=== PATIENT | female | born 1945 | race Caucasian/White ===

== ENCOUNTER 2022-03-14 21:06 | Emergency (ER) | payer MEDICARE ==
--- OUTSIDE RECORDS SUMMARY | 2022-03-14 21:11 | XMS REPORT | Continuity of Care Document ---
:1945 Author Organization [facility] t Address [address] [place] [address] Care Team Providers Name Role Phone Claire MILLER Primary Care Physician ANGELLA Attending Clinician Unavailable EWA Attending Clinician Unavailable Celestina MENJIVAR Attending Clinician Unavailable Jovanni LUND Attending Clinician Unavailable JEROMY Attending Clinician Unavailable Maico Whitaker MD Attending Clinician Timmy Bailey MD Attending Clinician Mariajose Delcid MD Attending Clinician Corby MILLER Attending Clinician CORBY Attending Clinician Unavailable aMrtin May MD Attending Clinician WILLIAM Attending Clinician Unavailable ANGELLA Attending Clinician Unavailable Natalio Brady MD Attending Clinician Stanley Mahoney APRN Attending Clinician Ayse Heath MD Attending Clinician Kristian Gordon MD Attending Clinician CO19 Attending Clinician Unavailable COPolly Attending Clinician Unavailable CLAIRE Attending Clinician Unavailable WILLIAM Attending Clinician Unavailable ANURADHA Attending Clinician Unavailable YAMILET Attending Clinician Unavailable SENA Attending Clinician Unavailable MEME Attending Clinician Unavailable Angella Attending Clinician Unavailable Jovanni LUND Admitting Clinician Unavailable LEAH Admitting Clinician Unavailable EDGAR Admitting Clinician Unavailable Payers Payer Name Policy Type Policy Number Effective Date Expiration Date Renny mayers MEDICARE PART A [id number] 2012 AND B 00:00:00 0500 [id number] 2012 00:00:00 0100 [id number] 2021 00:00:00 Problems Condition Condition Condition Status Onset Resolution Last Treating Co mments Source Name Details Category Date Date Treatment Clinician Date Ganglion Ganglion Disease Active UT of left of left 12-25 Health shoulder shoulder 00:00: 00 Shoulder Shoulder Disease Active UT pain pain 07-31 Health 00:00: 00 Other Other Disease Active UT idiopathic idiopathic 07-31 He alth scoliosis, scoliosis, 00:00: lumbar lumbar 00 region region Acute Acute Disease Active UT kidney kidney 07-31 Health failure, failure, 00:00: unspecifie unspecifie 00 d d Obstructiv Obstructiv Disease Active U T e sleep e sleep 07-31 Health apnea apnea 00:00: syndrome syndrome 00 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 07-31 Health resighini resighini 00:00: coronary coronary 00 artery of artery of resighini resighini heart with heart with unstable unstable angina angina pectoris pectoris Chronic Chronic Disease Active UT kidney kidney 07-31 Health disease, disease, 00:00: unspecifie unspecifie 00 d d Chronic Chronic Disease Active UT right right 07-31 Health shoulder shoulder 00:00: pain pain 00 Degenerati Degenerati Disease Active U T on of on of 07-31 Health cervical cervical 00:00: interverte interverte 00 bral disc bral disc Tendinitis Tendinitis Disease Active U T of both of both 07-31 Health 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 Formattin g of this note might be different from the original. Added automatic ally from request for surgery [id number] rmatting of this note might be different from the original. Added automatic ally from request for surgery [id number] Trochanter Trochanter Disease Active U T ic ic 4 Health bursitis bursitis 00:00: of left of left 00 hip hip Piriformis Piriformis Disease Active U T syndrome syndrome 4 Health of left of left 00:00: side side 00 Lumbar Lumbar Disease Active 2019-11 [facility] spondylosi spondylosi 1-23 st s s 00:00: Hospita 00 l Contact Contact Disease Active UT with and with and 05-09 Health (suspected (suspected 00:00: ) exposure ) exposure 00 to other to other viral viral communicab communicab le le diseases diseases Primary Primary Disease Active UT osteoarthr osteoarthr 4-17 He alth itis itis 00:00: involving involving 00 multiple multiple joints joints Myalgia Myalgia Disease Active 2018-11 UT 0- Health 00:00: 00 Multiple Multiple Disease Active UT joint pain joint pain 8-26 He alth 00:00: 00 Abnormal Abnormal Disease Active UT thyroid thyroid 7 Health blood test blood test 00:00: 00 Aortic Aortic Disease Active UT dilatation dilatation 4 He alth 00:00: 00 Allergic Allergic Disease Active UT rhinitis rhinitis 3-29 Health 00:00: 00 Status Status Disease Active [facility] post post 9-20 st lumbar lumbar 00:00: Hospita spinal spinal 00 l fusion fusion Preoperati Preoperati Disease Active U T ve ve 9 Health clearance clearance 00:00: 00 Chronic Chronic Disease Active [facility] left left 8-31 st lumbar lumbar 00:00: Hospita radiculopa radiculopa 00 l thy thy Lumbar Lumbar Disease Active [facility] stenosis stenosis 8-31 st 00:00: Hospita 00 l Lumbago Lumbago Disease Active UT 7-11 Health 00:00: 00 Abnormal Abnormal Disease Active UT findings findings 2-05 Health on on 00:00: diagnostic diagnostic 00 imaging of imaging of other other specified specified body body structures structures Vitamin B Vitamin B Disease Active UT deficiency deficiency 9-15 He alth 00:00: 00 Diabetes Diabetes Disease Active UT mellitus mellitus 5-11 Health 00:00: 00 Symptomati Symptomati Disease Active U T c c 510 Health menopausal menopausal 00:00: or female or female 00 climacteri climacteri c states c states Streptococ Streptococ Disease Active U T darline darline 510 Health pharyngiti pharyngiti 00:00: s s 00 Other Other Disease Active UT hyperlipid hyperlipid 5-10 He alth emia emia 00:00: 00 Abnormal Abnormal Disease Active [place] blood blood 10 Health level of level of 00:00: mineral mineral 00 Abnormal Abnormal Disease Active UT sputum sputum 10 Health 00:00: 00 Anemia Anemia Disease Active [place] 510 Health 00:00: 00 Anxiety Anxiety Disease Active UT 5-10 Health 00:00: 00 Cervical Cervical Disease Active UT radiculopa radiculopa 5-10 He alth thy thy 00:00: 00 Chronic Chronic Disease Active [place] mixed mixed 03-10 Health headache headache 00:00: syndrome syndrome 00 Chronic Chronic Disease Active UT obstructiv obstructiv 5-10 He alth e e 00:00: pulmonary pulmonary 00 disease disease 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 5-10 Health 00:00: 00 Essential Essential Disease Active UT (primary) (primary) 5-10 Heal th hypertensi hypertensi 00:00: on on 00 Fatigue Fatigue Disease Active UT 5-10 Health 00:00: 00 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 510 Health 00:00: 00 Insomnia Insomnia Disease Active UT 5-10 Health 00:00: 00 Bladder Bladder Disease Active 2012-11 [place] tumor tumor 1-27 Health 00:00: 00 Ganglion Ganglion Disease Active UT 7-15 Health 00:00: 00 History of History of Problem Resolve UT Benign Benign d Physici Polyps Of Polyps Of ans The Large The Large Intestine Intestine History of History of Problem Resolve UT Coronary Coronary d Physic i Artery Artery ans Disease Disease Ganglion Ganglion Problem Active UT Of Left Of Left Physici Shoulder Shoulder ans Bladder Bladder Problem Active UT Sphincter Sphincter Phys ici Spasm Spasm ans Chronic Chronic Problem Active UT obstructiv obstructiv Ph ysici e e ans pulmonary pulmonary disease disease History of History of Problem Resolve UT essential essential d Phys ici hypertensi hypertensi an s on on History of History of Problem Resolve UT Obstructiv Obstructiv d Ph ysici e sleep e sleep ans apnea apnea History of History of Problem Resolve UT rheumatoid rheumatoid d Ph ysici arthritis arthritis ans Other Other Problem Active UT hyperlipid hyperlipid Ph ysici emia emia ans Abnormal Abnormal Problem Active UT blood blood Physici level of level of ans mineral mineral Localized Localized Problem Active UT swelling, swelling, Phys ici mass or mass or ans lump of lump of neck neck Cough Cough Problem Active UT Physici ans Chronic Chronic Problem Active UT diarrhea diarrhea Physic i of unknown of unknown an s origin origin Hematuria Hematuria Problem Active UT Physici ans Insomnia Insomnia Problem Active UT Physici ans Anxiety Anxiety Problem Active UT Physici ans Anemia Anemia Problem Active UT Physici ans Urinary Urinary Problem Active UT tract tract Physici infection infection ans Essential Essential Problem Active UT (primary) (primary) Phys ici hypertensi hypertensi an s on on Hypercalce Hypercalce Problem Active U T malika malika Physici ans 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 Physici disease disease ans Intercosta Intercosta Problem Active U T l pain l pain Physici ans Depressive Depressive Problem Active U T disorder disorder Physic i ans Bladder Bladder Problem Active UT cancer cancer Physici ans Chronic Chronic Problem Active UT mixed mixed Physici headache headache ans syndrome syndrome Apnea, Apnea, Problem Active UT sleep sleep Physici ans Bladder Bladder Problem Active UT polyps polyps Physici ans Abnormal Abnormal Problem Active UT sputum sputum Physici ans Cervical Cervical Problem Active UT radiculopa radiculopa Ph ysici thy thy ans Neck Neck Problem Active UT strain strain Physici ans Lung mass Lung mass Problem Active UT Physici ans Symptomati Symptomati Problem Active U T c c Physici menopausal menopausal an s or female or female climacteri climacteri c states c states Allergic Allergic Problem Active UT reaction, reaction, Phys ici initial initial ans encounter encounter Fatigue Fatigue Problem Active UT Physici ans Streptococ Streptococ Problem Active U T darline darline Physici pharyngiti pharyngiti an s s s Sore Sore Problem Active UT throat throat Physici ans Diabetes Diabetes Problem Active UT mellitus mellitus Physic i ans Vitamin Vitamin Problem Active UT B12 B12 Physici deficiency deficiency an s Vitamin B Vitamin B Problem Active UT deficiency deficiency Ph ysici ans Flu-like Flu-like Problem Active UT symptoms symptoms Physic i ans Abnormal Abnormal Problem Active UT liver liver Physici enzymes enzymes ans Abnormal Abnormal Problem Active UT finding on finding on Ph ysici imaging imaging ans Shortness Shortness Problem Active UT of breath of breath Phys ici ans Chest pain Chest pain Problem Active U T Physici ans Vitamin D Vitamin D Problem Active UT insufficie insufficie Ph ysici ncy ncy ans Lumbago Lumbago Problem Active UT Physici ans Preoperati Preoperati Problem Active U T ve ve Physici clearance clearance ans Allergic Allergic Problem Active UT rhinitis rhinitis Physic i ans Aortic Aortic Problem Active UT dilatation dilatation Ph ysici ans Creatinine Creatinine Problem Active U T elevation elevation Phys ici ans Breast Breast Problem Active UT cancer cancer Physici screening screening ans Colon Colon Problem Active UT cancer cancer Physici screening screening ans HLD HLD Problem Active UT (hyperlipi (hyperlipi Ph ysici demia) demia) ans Breast Breast Problem Active UT cancer cancer Physici screening screening ans by by mammogram mammogram Multiple Multiple Problem Active UT joint pain joint pain Ph ysici ans Myalgia Myalgia Problem Active UT Physici ans Primary Primary Problem Active UT osteoarthr osteoarthr Ph ysici itis itis ans involving involving multiple multiple joints joints Exposure Exposure Problem Active UT to to Physici COVID-19 COVID-19 ans virus virus Encounter Encounter Problem Active UT for for Physici administra administra an s tion of tion of COVID-19 COVID-19 vaccine vaccine Allergies, Adverse Reactions, Alerts Allergy Allergy Status Severity Reaction(s) Onset Inactive Treating Comm ents Source Name Type Date Date Clinician Meloxica Allergy Active Unknown 2019-11 "messed UT m to 11-23 with my Health substanc 00:00: kidneys" e 00 "messed with my kidneys"" messed with my kidneys" Meloxica Propensi Active Other (See 2019-11 "messed M ethodi m ty to Comments) 11-[address] adverse 00:00: kidneys" Hospita reaction 00 l s to drug Nsaids Allergy Active made my UT to 06-11 "kidneys Health substanc 00:00: and liver e 00 shut down" Nsaids Propensi Active [facility]i (Non-Cade ty to 06-11 st roidal adverse 00:00: Hospita Anti-Inf reaction 00 l lammator s to y Drug) drug Penicill Propensi Active Method i ins ty to 04-21 st adverse 00:00: Hospita reaction 00 l s to drug Sulfa Propensi Active [facility]i (Sulfona ty to 04-21 st mide adverse 00:00: Hospita Antibiot reaction 00 l ics) s to drug Sulfa Allergy Active made my UT Antibiot to 04-21 "kidneys Health ics substanc 00:00: and liver e 00 shut down" Penicill Allergy Active Patient UT ins to 04-21 has never Health substanc 00:00: actually e 00 had PCN. She was told to avoid this medicatio n as her mother had an allergic reaction to PCN and almost . Patient stated she has received Keflex and did not experienc e any reactions . Patient has never actually had PCN. She was told to avoid this medicatio n as her mother had an allergic reaction to PCN and almost . Patient stated she has received Keflex and did not experienc e any reactions . Penicill Allergy Active UT ins to drug Physici (finding ans ) Sulfa Allergy Active UT Drugs to drug Physici (finding ans ) Family History Family Member Diagnosis Comments Start Date Stop Date Source Natural brother Heart disease [facility] father Cancer [facility] Maternal Rheum arthritis Yazdanism grandmother [facility] mother Cancer [facility] mother Diabetes [facility] mother Heart disease [facility] mother Rheum arthritis [facility] sister Heart disease [facility] sister Rheum arthritis [facility] Unknown Family Family history Family History [place] Physicians Member of Ulcerative Colitis Social History Social Habit Start Date Stop Date Quantity Comments Source Exposure to Not sure [place] [facility] SARS-CoV-2 (event) Alcohol intake 2022-01-07 2022-01-07 .43 /d [place] [facility] 00:00:00 00:00:00 Cigarettes smoked 2021-08-06 2021-08-06 [facility] Heal th current (pack per 00:00:00 00:00:00 day) - Reported Cigarette pack-years 2021-08-06 2021-08-06 [facility] H ealth 00:00:00 00:00:00 Tobacco use and 2021-08-06 2021-08-06 Smokeless tobacco [place] [facility] exposure 00:00:00 00:00:00 non-user History of tobacco 1998-08-28 Cigarette Smoker [place] [facility] use 00:00:00 Sex Ass[birth year] At [birth year] F [place] [facility] 00:00:00 00:00:00 Smoking Status Start Date Stop Date Source Ex-smoker 2021-08-06 00:00:00 2021-08-06 00:00:00 [place] [facility] Medications Ordered Filled Start Stop Current Ordering Indication Dosage Frequency Signature Comments Components Source Medication Medication Date Date Medication? Clinician (SIG) Name Name acetaminoph 2021-0 Yes 650mg Q.5D Take 650 U T en (Tylenol 3-09 mg by Health 8 Hour) 650 10:21: mouth 2 MG ER 50 (two) tablet times a day if needed. aspirin 81 2-0 Yes 81mg QD Take 81 mg U T MG EC 3-09 by mouth 1 Health tablet 10:21: (one) time 50 each day. cycloSPORIN 2-0 Yes 1[drp] QD 1 drop 1 UT E 3-09 (one) time Health (Restasis) 10:21: each day. 0.05 % 50 ophthalmic emulsion acetaminoph 2021-0 Yes 650mg Q.5D Take 650 U T en (Tylenol 3-09 mg by Health 8 Hour) 650 10:21: mouth 2 MG ER 50 (two) tablet times a day if needed. aspirin 81 2-0 Yes 81mg QD Take 81 mg U T MG EC 3-09 by mouth 1 Health tablet 10:21: (one) time 50 each day. cycloSPORIN 2-0 Yes 1[drp] QD 1 drop 1 UT E 3-09 (one) time Health (Restasis) 10:21: each day. 0.05 % 50 ophthalmic emulsion acetaminoph 2-0 Yes 650mg Q.5D Take 650 U T en (Tylenol 2-24 mg by Health 8 Hour) 650 14:00: mouth 2 MG ER 33 (two) tablet times a day if needed. aspirin 81 2-0 Yes 81mg QD Take 81 mg U T MG EC 2-24 by mouth 1 Health tablet 14:00: (one) time 33 each day. cycloSPORIN 2022-0 Yes 1[drp] QD 1 drop 1 UT E 2-24 (one) time Health (Restasis) 14:00: each day. 0.05 % 33 ophthalmic emulsion cyclobenzap Yes TAKE 1 UT rine 1-05 TABLET (5 Health (Flexeril) 00:00: MG TOTAL) 5 MG tablet 00 BY MOUTH 2 (TWO) TIMES A DAY FOR 30 DAYS. cyclobenzap Yes TAKE 1 UT rine 1-05 TABLET (5 Health (Flexeril) 00:00: MG TOTAL) 5 MG tablet 00 BY MOUTH 2 (TWO) TIMES A DAY FOR 30 DAYS. cyclobenzap Yes TAKE 1 UT rine 1-05 TABLET (5 Health (Flexeril) 00:00: MG TOTAL) 5 MG tablet 00 BY MOUTH 2 (TWO) TIMES A DAY FOR 30 DAYS. traMADol 2020-11 Yes TAKE ONE UT (Ultram) 50 2-29 (1) Health MG tablet 00:00: TABLET(S) 00 BY MOUTH TWICE A DAY NEEDED FOR SEVEN DAYS. traMADol 2020-11 Yes TAKE ONE UT (Ultram) 50 2-29 (1) Health MG tablet 00:00: TABLET(S) 00 BY MOUTH TWICE A DAY NEEDED FOR SEVEN DAYS. traMADol 2020-11 Yes TAKE ONE UT (Ultram) 50 2-29 (1) Health MG tablet 00:00: TABLET(S) 00 BY MOUTH TWICE A DAY NEEDED FOR SEVEN DAYS. DULoxetine 2020-11 Yes [id number] TAKE ONE UT (Cymbalta) 2-21 (1) Health [address] 00:00: CAPSULE BY capsule 00 MOUTH DAILY. DULoxetine 2020-11 Yes [id number] TAKE ONE UT (Cymbalta) 2-21 (1) Health [address] 00:00: CAPSULE BY capsule 00 MOUTH DAILY. DULoxetine 2020-11 Yes [id number] TAKE ONE UT (Cymbalta) 2-21 (1) Health [address] 00:00: CAPSULE BY capsule 00 MOUTH DAILY. clopidogrel 0 Yes 75mg QD Take 75 mg UT (Plavix) 75 9-15 by mouth 1 He alth MG tablet 00:00: (one) time 00 each day. clopidogrel 2020-0 Yes 75mg QD Take 75 mg UT (Plavix) 75 9-15 by mouth 1 He alth MG tablet 00:00: (one) time 00 each day. clopidogrel 2020-0 Yes 75mg QD Take 75 mg UT (Plavix) 75 9-15 by mouth 1 He alth MG tablet 00:00: (one) time 00 each day. metoprolol Yes 50mg QD Take 50 mg U T succinate 7-27 by mouth 1 Heal th XL 00:00: (one) time (Toprol-XL) 00 each day. 50 MG 24 hr tablet metoprolol 0 Yes 50mg QD Take 50 mg U T succinate 7-27 by mouth 1 Heal th XL 00:00: (one) time (Toprol-XL) 00 each day. 50 MG 24 hr tablet metoprolol Yes 50mg QD Take 50 mg U T succinate 7-27 by mouth 1 Heal th XL 00:00: (one) time (Toprol-XL) 00 each day. 50 MG 24 hr tablet clopidogreL No 75mg QD Take 1 Met hodi (PLAVIX) 75 5-20 06-20 tablet (75 s t mg tablet 00:00: 04:59 mg total) Ho spita 00 :00 by mouth l daily for 30 days. cholecalcif Yes 1{tbl} QD Take 1 Me thodi grayson, 5-[address] vitamin D3, 15:59: mouth Hospi ta (VITAMIN D3 20 daily. l ORAL) cyanocobala Yes 1{tbl} QD Take 1 Me thodi min, 5-[address] vitamin 15:59: mouth Hospita B-12, 20 daily. l (VITAMIN B-12 ORAL) cycloSPORIN Yes 1[drp] QD Administer [facility]i E 5-[address] (RESTASIS) 15:59: both eyes Ho spita 0.05 % 20 daily. l ophthalmic emulsion aspirin Yes 81mg QD Take 81 mg Meth kasey (ECOTRIN) 5-[address] 81 MG 15:59: daily. Hospita enteric 20 l coated tablet psyllium Yes 1{scoop QD Take 1 Meth kasey husk 5-19 } Scoop by st (METAMUCIL 15:59: mouth Hospit a ORAL) 20 every l morning. acetaminoph Yes 650mg Q.5D Take 650 M ethodi en ER 5-[address] (Tylenol 15:59: mouth 2 Hospit a Arthritis 20 (two) l Pain) 650 times a MG 8 hr day as tablet needed for mild pain. metoprolol No 50mg QD Take 50 mg [facility]i succinate 03-[address] XL 15:59: 00:00 nightly. Hospita (TOPROL-XL) 20 :00 l 50 mg 24 hr tablet olmesartan No 20mg QD Take 20 mg [facility] (BENICAR) 03-[address] 20 MG 15:59: 00:00 daily. Hospita tablet 20 :00 l Lactobacill No Take by Ct shaunnaodi us 03-[address] acidophilus 14:26: 00:00 Hospi ta (PROBIOTIC 46 :00 l ORAL) metoprolol No 25mg QD Take 1 Meth kasey succinate 03-19 tablet (25 st XL 00:00: 04:59 mg total) Hospita (TOPROL-XL) 00 :00 by mouth l 25 mg 24 hr nightly tablet for 30 days. HOLD IF SBP<110 OR HR <55 DULoxetine DULoxetine Yes MICAELA 1 QD TAKE 1 UT HCl - 30 MG HCl - 30 MG 4-23 TAVAREZ CAPSULE Physici Oral Oral 00:00: M.D. DAILY ans Capsule Capsule 00 Delayed Delayed Release [place] [id number] 1{tbl} Q6H Take 1 Methodi en-codeine -19 03-[address] (TYLENOL 00:00: 04:59 mouth Hospita WITH 00 :00 every 6 l CODEINE #3) (six) 300-30 mg hours as per tablet needed for moderate pain for up to 10 days .acute pain. aspirin 2019-11- No 81mg QD Take 81 mg Met hodi (ECOTRIN) 24 11-[address] 81 MG 16:28: 00:00 daily. Hospita enteric 06 :00 l coated tablet tiZANidine 2019-11- No 2mg Q8H Take 1 Meth kasey (ZANAFLEX) 11-24 12-09 tablet (2 st 2 MG tablet 00:00: 05:59 mg total) Hospita 00 :00 by mouth l every 8 (eight) hours as needed for muscle spasms for up to 14 days. acetaminoph 2019-11- [place] [id number] 1{tbl} Q6H Take 1 Methodi en-codeine 11-24 12-[address] (TYLENOL 00:00: 05:59 mouth Hospita WITH 00 :00 every 6 l CODEINE #3) (six) 300-30 mg hours as per tablet needed for moderate pain for up to 10 days .acute pain. olmesartan 2020- No QD Take by Met hodi (Benicar) 04-05- mouth st 20 MG 00:00: 00:00 every Hospita tablet 00 :00 morning. l DULoxetine DULoxetine Yes MICAELA 1 QD TAKE 1 UT HCl - 60 MG HCl - 60 MG 8-12 TAVAREZ CAPSULE Physici Oral Oral 00:00: M.D. DAILY ans Capsule Capsule 00 Delayed Delayed Release Release Particles Particles Nitroglycer Nitroglycer Yes MARIA C ATAI PLACE 1 UT in 0.4 MG in 0.4 MG 4-23 M.D. TABLET Phy sici Sublingual Sublingual 00:00: PRN Chest ans Tablet Tablet 00 Pain under Sublingual Sublingual tongue , repeat dose every 5 minutes up to 3 doses in 15 minutes, do not exceed 3 tablets in 15 minute Fluticasone Fluticasone Yes MARIA C ATAI QD USE 1 UT Propionate Propionate 3-29 M.D. SPRAY IN Physici 50 MCG/ACT 50 MCG/ACT 00:00: EACH a ns Nasal Nasal 00 NOSTRIL Suspension Suspension ONCE DAILY. fluticasone Yes USE 1 UT (Flonase) 3-29 SPRAY IN Health 50 MCG/ACT 00:00: EACH nasal spray 00 NOSTRIL ONCE DAILY. fluticasone Yes USE 1 UT (Flonase) 3-29 SPRAY IN Health 50 MCG/ACT 00:00: EACH nasal spray 00 NOSTRIL ONCE DAILY. fluticasone Yes USE 1 UT (Flonase) 3-29 SPRAY IN Health 50 MCG/ACT 00:00: EACH nasal spray 00 NOSTRIL ONCE DAILY. metoprolol 2020- No QD nightly. Me thodi succinate 04-14- st XL 00:00: 00:00 Hospita (TOPROL-XL) 00 :00 l 25 mg 24 hr tablet rosuvastati Yes 40mg QD Take 40 mg Methodi n (CRESTOR) 4-[address] 40 MG 00:00: nightly. Hospita tablet 00 l DULoxetine Yes 60mg QD Take 60 mg M ethodi (CYMBALTA) 4-[address] 60 MG 00:00: every Hospita capsule 00 morning. l Rosuvastati Rosuvastati Yes MARIA C ATAI TAKE 1 UT n Calcium n Calcium 1-23 M.D. TABLET BY Physici 40 MG Oral 40 MG Oral 00:00: MOUTH ans Tablet Tablet 00 DAILY rosuvastati Yes 40mg QD Take 40 mg UT n (Crestor) 1-23 by mouth 1 He alth 40 MG 00:00: (one) time tablet 00 each day. rosuvastati Yes 40mg QD Take 40 mg UT n (Crestor) 1-23 by mouth 1 He alth 40 MG 00:00: (one) time tablet 00 each day. rosuvastati Yes 40mg QD Take 40 mg UT n (Crestor) 1-23 by mouth 1 He alth 40 MG 00:00: (one) time tablet 00 each day. Metoprolol Metoprolol 2014-11 Yes MARIA C ATAI TAKE ONE UT Succinate Succinate 2-29 M.D. (1) Physi ci ER 50 MG ER 50 MG 00:00: TABLET(S) ans Oral Tablet Oral Tablet 00 BY MOUTH Extended Extended ONCE A Release 24 Release 24 DAY. Hour Hour Hema BCG 50 Cleary BCG 50 No THOM Administer UT MG MG 2-14 MEME BCG i amp Physic i Intravesica Intravesica 00:00: P.A. or 50mg in ans l l 00 50ml of Suspension Suspension 0.9% NS Reconstitut Reconstitut now ed ed Aspirin 81 Aspirin 81 Yes U T MG TABS MG TABS 8-22 Physici 00:00: ans 00 Benazepril Benazepril 2009-11 Yes MARIA C ATAI TAKE ONE UT HCl - 20 MG HCl - 20 MG 1-16 M.D. (1) P hysici Oral Tablet Oral Tablet 00:00: TABLET(S) ans 00 BY MOUTH ONCE A DAY. Biotin TABS Biotin TABS Yes U T Physici ans Immunizations Ordered Immunization Filled Immunization Date Status Commen ts Source Name Name Influenza, High Dose 2021-08-07 Completed [facility] Seasonal 00:00:00 Influenza, High Dose 2021-08-07 Completed [facility] Seasonal 00:00:00 Influenza, High Dose 2021-08-07 Completed [facility] Seasonal (fluzone) 00:00:00 COVID-19 Moderna 18 & 2021-07-21 Completed [facility] Over Vaccination 00:00:00 COVID-19 Moderna 18 & 2021-07-21 Completed [facility] Over Vaccination 00:00:00 COVID-19 Moderna 18 & 2021-07-21 Completed [facility] Over Vaccination 00:00:00 Moderna COVID-19 2020-12-20 Completed [facility] Physi cians Vaccine 100 MCG/0.5ML 08:46:00 Intramuscular Suspension COVID-19 Moderna 18 & 2020-12-20 Completed [facility] Over Vaccination 00:00:00 COVID-19 Moderna 18 & 2020-12-20 Completed [facility] Over Vaccination 00:00:00 COVID-19 Moderna 18 & 2020-12-20 Completed [facility] Over Vaccination 00:00:00 Moderna COVID-19 2020-11-20 Completed [facility] Vaccine 100 MCG/0.5ML 08:32:00 Intramuscular Suspension COVID-19 Moderna 18 & 2020-11-20 [facility] 00:00:00 COVID-19 Moderna 18 & 2020-11-20 [facility]pleted [facility] 00:00:00 COVID-19 Moderna 18 & 2020-11-20 [facility]pleted [facility] 00:00:00 Influenza, seasonal, 2019-08-02 [facility]pleted [facility] injectable 00:00:00 Influenza, seasonal, 2019-08-02 [facility]pleted [facility] injectable 00:00:00 Influenza, seasonal, 2019-08-02 [facility]pleted [facility] injectable 00:00:00 Fluzone INJ 2019-08-02 Completed [facility] 00:00:00 Influenza, 2018-07-30 [facility]pleted [facility] quadrivalent, 00:00:00 injectable, preservative free Influenza, 2018-07-30 [facility]pleted [facility] quadrivalent, 00:00:00 injectable, preservative free Influenza, 2018-07-30 Completed [facility] quadrivalent, 00:00:00 injectable, preservative free (flublok) Flublok Quadrivalent 2018-07-30 Completed [facility] 0.5 ML Intramuscular 00:00:00 Solution Prefilled Syringe Pneumococcal Conjugate 2017-08-03 Completed [facility] PCV 13 00:00:00 Pneumococcal Conjugate 2017-08-03 Completed [facility] PCV 13 00:00:00 Pneumococcal Conjugate 2017-08-03 Completed [facility] PCV 13 00:00:00 Prevnar 13 2017-08-03 Completed [facility] Intramuscular 00:00:00 Suspension Pneumococcal Conjugate 2017-05-15 Completed [facility] PCV 13 00:00:00 Pneumococcal Conjugate 2017-05-15 Completed [facility] PCV 13 00:00:00 Pneumococcal Conjugate 2017-05-15 Completed [facility] PCV 13 00:00:00 Pneumococcal 2012-11-28 Completed [facility] polysaccharide 14:31:00 vaccine, 23 valent Pneumococcal 2012-11-28 Completed [facility] Polysaccharide PPV23 00:00:00 Pneumococcal 2012-11-28 Completed [facility] Polysaccharide PPV23 00:00:00 Pneumococcal 2012-11-28 Completed [facility] Polysaccharide PPV23 00:00:00 Vital Signs Vital Name Observation Time Observation Value Comments Source Systolic blood 2022-01-07 126 mm[Hg] [facility] pressure 16:19:00 Diastolic blood 2022-01-07 81 mm[Hg] [facility] pressure 16:19:00 Heart rate 2022-01-07 54 /min [facility] 16:19:00 Body temperature 2022-01-07 36.39 Mere [facility] 16:19:00 Body height 2022-01-07 162.6 cm [facility] 16:19:00 Body weight 2022-01-07 66.134 kg [facility] 16:19:00 BMI 2022-01-07 25.03 kg/m2 [facility] 16:19:00 Oxygen saturation 2022-01-07 96 /min [facility] in Arterial blood 16:19:00 by Pulse oximetry Systolic blood 2021-03-19 102 mm[Hg] [facility] pressure 12:12:18 Hospital Diastolic blood 2021-03-19 50 mm[Hg] [facility] pressure 12:12:18 Hospital Heart rate 2021-03-19 65 /min [facility] 12:12:18 Hospital Body temperature 2021-03-19 36.39 Mere [facility] 12:12:18 Hospital Respiratory rate 2021-03-19 17 /min [facility] 12:12:18 Hospital Oxygen saturation 2021-03-19 99 /min [facility] in Arterial blood 12:12:18 Hospital by Pulse oximetry Body height 2021-03-18 162.6 cm [facility] 15:02:00 Hospital Body weight 2021-03-18 71.215 kg [facility] 15:02:00 Hospital BMI 2021-03-18 26.95 kg/m2 [facility] 15:02:00 Hospital Systolic blood 2021-02-21 110 mm[Hg] [facility]; [facility] pressure 10:06:00 Position: Sitting Diastolic blood 2021-02-21 75 mm[Hg] [facility]; [facility] pressure 10:06:00 Position: Sitting Weight 2021-02-21 161.5 [lb_av] [facility] 10:06:00 Body mass index 2021-02-21 27.72 kg/m2 [facility] (BMI) [Ratio] 10:06:00 Body temperature 2021-02-21 97 [degF] Method: [facility] 10:06:00 Temporal Heart Rate 2021-02-21 68 /min [facility] 10:06:00 Systolic blood 2020-01-06 105 mm[Hg] [facility] pressure 09:13:00 Diastolic blood 2020-01-06 61 mm[Hg] [facility] pressure 09:13:00 Body temperature 2020-01-06 97 [degF] [facility] 09:13:00 Heart Rate 2020-01-06 71 /min [facility] 09:13:00 Body height 2020-01-06 64 [in_us] [facility] 08:21:00 Systolic blood 2019-12-12 132 mm[Hg] [facility] pressure 09:59:00 Position: Sitting Diastolic blood 2019-12-12 65 mm[Hg] [facility] [place] pressure 09:59:00 Position: Sitting Body height 2019-12-12 64 [in_us] [facility] 09:59:00 Weight 2019-12-12 150 [lb_av] [facility] 09:59:00 Body mass index 2019-12-12 25.75 kg/m2 [facility] (BMI) [Ratio] 09:59:00 Body temperature 2019-12-12 96.6 [degF] Method[facility] 09:59:00 Temporal Heart Rate 2019-12-12 60 /min [facility] 09:59:00 BP Systolic 2019-09-12 116 mm[Hg] Location: L[facility]; [facility] 14:05:00 Position: Sitting BP Diastolic 2019-09-12 65 mm[Hg] Location: [facility]; [facility] 14:05:00 Position: Sitting Height 2019-09-12 64 [in_us] [facility] 14:05:00 Weight 2019-09-12 166.375 [lb_av] [facility] 14:05:00 Body Mass Index 2019-09-12 28.56 kg/m2 [facility] Calculated 14:05:00 Temperature 2019-09-12 97.6 [degF] Method: Oral [facility] 14:05:00 Heart Rate 2019-09-12 65 /min Location: L [facility] 14:05:00 Brachial Artery; Quality: Normal BP Systolic 2019-08-22 94 mm[Hg] [facility] [facility] 13:22:00 Position: Sitting BP Diastolic 2019-08-22 61 mm[Hg] Location: [facility]; [facility] 13:22:00 Position: Sitting Height 2019-08-22 64 [in_us] [facility] 13:22:00 Weight 2019-08-22 164 [lb_av] [facility] 13:22:00 Body Mass Index 2019-08-22 28.15 kg/m2 [facility] Calculated 13:22:00 Temperature 2019-08-22 97.6 [degF] Method: Oral [facility] 13:22:00 Heart Rate 2019-08-22 72 /min Location: L [facility] 13:22:00 Brachial Artery; BP Systolic 2019-06-19 100 mm[Hg] [facility] 07:56:00 BP Diastolic 2019-06-19 66 mm[Hg] [facility] 07:56:00 Weight 2019-06-19 162.5 [lb_av] [facility] 07:56:00 Body Mass Index 2019-06-19 27.89 kg/m2 [facility] Calculated 07:56:00 Height 2019-06-19 64 [in_us] [facility] 07:56:00 Temperature 2019-06-19 97.4 [degF] [facility] 07:56:00 Heart Rate 2019-06-19 72 /min [facility] 07:56:00 BP Systolic 2019-06-12 103 mm[Hg] [facility] 13:10:00 Position: Sitting BP Diastolic 2019-06-12 68 mm[Hg] [facility] 13:10:00 Position: Sitting Weight 2019-06-12 162 [lb_av] [facility] 13:10:00 Body Mass Index 2019-06-12 27.81 kg/m2 [facility] Calculated 13:10:00 Height 2019-06-12 64 [in_us] [facility] 13:10:00 Temperature 2019-06-12 97.7 [degF] Method: [facility] 13:10:00 Tympanic Heart Rate 2019-06-12 71 /min [facility] 13:10:00 BP Systolic 2019-05-30 96 mm[Hg] [facility] 07:52:00 BP Diastolic 2019-05-30 59 mm[Hg] [facility] 07:52:00 Weight 2019-05-30 163.125 [lb_av] [facility] 07:52:00 Body Mass Index 2019-05-30 28 kg/m2 [facility] Calculated 07:52:00 Height 2019-05-30 64 [in_us] [facility] 07:52:00 Temperature 2019-05-30 97.9 [degF] [facility] 07:52:00 Heart Rate 2019-05-30 71 /min [facility] 07:52:00 Respiration Rate 2019-05-30 16 /min [facility] 07:52:00 BP Systolic 2018-12-13 127 mm[Hg] [facility] 10:16:00 Position: Sitting BP Diastolic 2018-12-13 79 mm[Hg] [facility] [place] 10:16:00 Position: Sitting Height 2018-12-13 64 [in_us] [facility] 10:16:00 Weight 2018-12-13 158 [lb_av] [facility] 10:16:00 Body Mass Index 2018-12-13 27.12 kg/m2 [facility] Calculated 10:16:00 Temperature 2018-12-13 97.7 [degF] Method: [facility] 10:16:00 Temporal Heart Rate 2018-12-13 61 /min Location: L [facility] 10:16:00 Brachial Artery; BP Systolic 2018-02-26 156 mm[Hg] [facility] [place] 08:42:00 Position: Sitting BP Diastolic 2018-02-26 84 mm[Hg] Location: [facility]; [facility] 08:42:00 Position: Sitting Height 2018-02-26 64 [in_us] [facility] 08:42:00 Weight 2018-02-26 163 [lb_av] [facility] 08:42:00 Body Mass Index 2018-02-26 27.98 kg/m2 [facility] Calculated 08:42:00 Temperature 2018-02-26 99.2 [degF] Method: Oral [facility] 08:42:00 Heart Rate 2018-02-26 71 /min Location: L [facility] 08:42:00 Brachial Artery; BP Systolic 2018-01-27 129 mm[Hg] Location: RUE; [facility] 10:06:00 Position: Sitting BP Diastolic 2018-01-27 81 mm[Hg] Location: [facility]; [facility] 10:06:00 Position: Sitting Height 2018-01-27 64 [in_us] [facility] 10:06:00 Weight 2018-01-27 161 [lb_av] [facility] 10:06:00 Body Mass Index 2018-01-27 27.64 kg/m2 [facility] Calculated 10:06:00 Temperature 2018-01-27 99.5 [degF] Method: Oral [facility] 10:06:00 Heart Rate 2018-01-27 93 /min Location: R [facility] 10:06:00 Brachial Artery; Quality: Normal BP Systolic 2017-12-21 125 mm[Hg] Location: L[facility]; [facility] 08:29:00 Position: Sitting BP Diastolic 2017-12-21 80 mm[Hg] Location: L[facility]; [facility] 08:29:00 Position: Sitting Height 2017-12-21 64 [in_us] [facility] 08:29:00 Weight 2017-12-21 162 [lb_av] [facility] 08:29:00 Body Mass Index 2017-12-21 27.81 kg/m2 [facility] Calculated 08:29:00 Temperature 2017-12-21 97.7 [degF] Method: [facility] 08:29:00 Temporal Heart Rate 2017-12-21 69 /min [facility] 08:29:00 Procedures Procedure Date / Time Performing Clinician Source Performed BASIC METABOLIC PANEL 2021-03-19 09:48:00 Emory Bailey [facility] LIPID PANEL 2021-03-19 09:48:00 [facility] ESTIMATED GFR 2021-03-19 09:48:00 [facility] ECG PRE/POST OP 2021-03-18 18:29:25 [facility] CV LEFT HEART CATH LV 2021-03-18 18:26:23 [facility] GRAM WITH CORS CV PCI 2021-03-18 18:26:23 [facility] ACTIVATED CLOTTING TIME, 2021-03-18 18:26:00 Terrance Delcid [facility] LOW RESPONSE TYPE AND SCREEN 2021-03-18 17:17:00 [facility] COVID-19 QUALITATIVE 2021-03-18 17:05:00 [facility] RT-PCR XR CHEST 1 VW PORTABLE 2021-03-18 16:26:42 Kahlil Whitaker [facility] HC COMPLETE BLD COUNT 2021-03-18 15:59:00 Kahlil Whitaker [facility] W/AUTO DIFF COMPREHENSIVE METABOLIC 2021-03-18 15:59:00 Kahlil Whitaker [facility] PANEL TROPONIN 2021-03-18 15:59:00 [facility] B NATRIURETIC PEPTIDE 2021-03-18 15:59:00 Kahlil Whitaker [facility] PROTHROMBIN TIME WITH INR 2021-03-18 15:59[facility]00 [facility] PARTIAL THROMBOPLASTIN 2021-03-18 15:59:00 Kahlil Whitaker [facility] TIME (PTT) ESTIMATED GFR 2021-03-18 15:59:00 [facility] ECG ED PRELIMINARY 2021-03-18 15:34:44 Kahlil Whitaker [facility] INTERPRETATION ECG 12-LEAD 2021-03-18 15:07:12 [facility] XR SHOULDER 2+ VW RIGHT 2021-01-17 13:40:17 Elijah Lund [facility] XR CERVICAL SPINE 2021-01-17 13:40:17 [facility] COMPLETE [place] ARTHROCENTESIS 2021-01-17 13:30:00 [facility] ASPIR&/INJ MAJOR JT/BURSA W/O US XR LUMBAR SPINE 2 OR 3 VW 2020-12-27 22:55:53 [facility] [place] ARTHROCENTESIS 2020-10-23 15:30:00 [facility] ASPIR&/INJ MAJOR JT/BURSA W/O US XR LUMBAR SPINE 2 OR 3 VW 2020-10-08 16:52:27 [facility] [place] SURGICAL PATHOLOGY 2020-09-23 17:25:00 [facility] REQUEST [place] > 1 HOUR 2020-09-23 16:50:[address] [facility] [place] AN ELECTIVE 2020-09-23 13:30:49 Jose Antonio [facility] ENDOTRACHEAL AIRWAY Natalio FUSION, SPINE, LUMBAR, 2020-09-23 13:03:00 [facility] XLIF [place] FUSION, SPINE, LUMBAR, 2020-09-23 13:03:00 [facility] POSTERIOR APPROACH [place] ABO AND RH CONFIRMATION 2020-09-23 12:20:00 [facility] [place] ECG PRE/POST OP 2020-09-18 16:13:42 [facility] [place] HEMOGLOBIN A1C 2020-09-18 16:08:00 [facility] HEPATIC FUNCTION PANEL 2020-09-18 16:08:[address] [facility] COVID-19 QUALITATIVE 2020-09-18 16:01:00 [facility] RT-PCR [place] HC COMPLETE BLD COUNT 2020-09-18 16:01:00 [facility] W/AUTO DIFF [place] BASIC METABOLIC PANEL 2020-09-18 16:01:00 [facility] [place] PROTHROMBIN TIME WITH INR 2020-09-18 16:01:00 [facility] [place] PARTIAL THROMBOPLASTIN 2020-09-18 16:01:00 [facility] TIME (PTT) [place] TYPE AND SCREEN 2020-09-18 16:01:00 [facility] [place] ESTIMATED GFR 2020-09-18 16:01:00 [facility] [place] MRI HIP WO CONTRAST LT 2020-09-13 16:02:33 [facility] Wilfred E. XR LUMBAR SPINE AP 2020-09-13 15:38:17 [facility] LATERAL FLEXION AND Wilfred E. EXTENSION MRI LUMBAR SPINE W WO 2020-08-23 20:15:00 Jimmy Gordon [facility] CONTRAST POC CREATININE 2020-08-23 19:27:00 GordonJimmy massey [facility] ESTIMATED GFR 2020-08-23 19:27:00 [place] [facility] . [facility] - 2020-08-12 00:00:00 [facility] COVID-19/SARS-Cov-2 . [facility] - 2020-05-09 00:00:00 [facility] COVID-19/SARS-Cov-2 [[facility]] CMP W/EGFR 2020-01-06 00:00:00 [facility] [[facility]] HEMOGLOBIN A1c 2020-01-06 00:00:00 [facility] [[facility]] CBC (INCLUDES 2020-01-06 00:00:00 [facility] DIFF/PLT) [[facility]] LIPID PANEL 2020-01-06 00:00:00 [facility] [[facility]] TSH, 3RD GENERATION 2020-01-06 00:00:00 [facility] W/REFLEX TO FT4 [[facility]] BASIC METABOLIC 2019-12-25 00:00:00 [facility] PANEL W/EGFR CT Abdomen/Pelvis wo 2019-12-22 00:00:00 [facility] contrast [id number] [Q] CYTOLOGY, NON-PROPERTY DISPOSAL OFFICER 2019-12-12 00:00:[address] [facility] [address] [address] Abdomen/Pelvis w/wo 2019-12-12 00:00:00 [facility] contrast [id number] [[facility]] CMP W/EGFR 2019-06-19 00:00:00 [facility] [[facility]] OCCULT BLOOD, 2019-05-30 00:00:00 [facility] STOOL, SCREENING [[facility]] LIPID PANEL 2019-05-30 00:00:00 [facility] [[facility]] CMP W/EGFR 2019-05-30 00:00:00 [facility] [[facility]] CBC (INCLUDES 2019-05-30 00:00:00 [facility] DIFF/PLT) [[facility]] TSH, 3RD GENERATION 2019-05-30 00:00:00 [facility] W/REFLEX TO FT4 [[facility]] HEMOGLOBIN A1c 2019-05-30 00:00:00 [facility] [[facility]] MICROALBUMIN, 2019-05-30 00:00:00 [facility] RANDOM URINE (W/CREATININE) MA Breast mammogram 2019-05-30 00:00:00 [facility] screen bilateral [id number] [Q] CYTOLOGY, NON-PROPERTY DISPOSAL OFFICER 2018-12-13 00:00:00 [facility] [N] Nuclear Test-Exercise 2018-02-26 00:00:00 [facility] Treadmill Stress Perfusion CAPRI 2018-02-26 00:00:00 [facility] [N] 2D Echo complete, 2018-02-26 00:00:00 [facility] with Doppler [id number] [Q] CYTOLOGY, NON-PROPERTY DISPOSAL OFFICER 2017-12-21 00:00:00 [facility] History of Cath Stent [facility] Placement [facility] of Hysterectomy [facility] History of Breast Surgery [facility] Lumpectomy Plan of Care Planned Activity Planned Date Details Comments Source Diagnostic Test 2020-01-23 [[facility]] BASIC [facility] Pending 00:00:00 METABOLIC PANEL W/EGFR [code = [QLH] BASIC METABOLIC PANEL W/EGFR] Diagnostic Test 2019-08-22 [QLH] CMP W/EGFR [facility] Pending 00:00:00 [code = [QLH] CMP W/EGFR] Diagnostic Test 2019-06-12 [QLH] OCCULT BLOOD, [facility] Pending 00:00:00 STOOL, SCREENING [code = [QLH] OCCULT BLOOD, STOOL, SCREENING] Diagnostic Test 2019-06-12 [QLH] CMP W/EGFR [facility] Pending 00:00:00 [code = [QLH] CMP W/EGFR] Diagnostic Test 2019-06-12 [QL[facility]] CBC (INCLUDES [facility]ending 00:00:00 DIFF/PLT) [code = [QLH] CBC (INCLUDES DIFF/PLT)] Diagnostic Test 2019-06-12 [QLH] TSH, 3RD [facility] Pending 00:00:00 GENERATION W/REFLEX TO FT4 [code = [QLH] TSH, 3RD GENERATION W/REFLEX TO FT4] Diagnostic Test 2019-06-12 [QLH] LIPID PANEL [facility] Pending 00:00:00 [code = [QLH] LIPID PANEL] Diagnostic Test 2019-06-12 [QLH] HEMOGLOBIN A1c [facility] Pending 00:00:00 [code = [QLH] HEMOGLOBIN A1c] Diagnostic Test 2019-06-12 [QLH] CBC (INCLUDES [facility]ending 00:00:00 DIFF/PLT) [code = [QLH] CBC (INCLUDES DIFF/PLT)] Diagnostic Test 2019-06-12 [QLH] MICROALBUMIN, [facility] Pending 00:00:00 RANDOM URINE (W/CREATININE) [code = 42848] Diagnostic Test 2018-03-08 [N] Nuclear [facility] Pending 00:00:00 Test-Exercise Treadmill Stress Perfusion [code = [N] Nuclear Test-Exercise Treadmill Stress Perfusion] Diagnostic Test 2018-02-26 [N] 2D Echo [facility] Pending 00:00:00 complete, with Doppler 48238 [code = [N] 2D Echo complete, with Doppler 39381] Diagnostic Test 2018-02-26 [N] Nuclear [facility] Pending 00:00:00 Test-Exercise Treadmill Stress Perfusion [code = [N] Nuclear Test-Exercise Treadmill Stress Perfusion] Diagnostic Test 2018-02-26 [N] 2D Echo [facility] Pending 00:00:00 complete, with Doppler 17673 [code = [N] 2D Echo complete, with Doppler 30443] Future Scheduled DIABETES: RETINAL [facility] EYE EXAM [code = DIABETES: RETINAL EYE EXAM] Future Scheduled DIABETIC FOOT EXAM [facility] [code = DIABETIC FOOT EXAM] Future Scheduled Hepatitis C [facility] screening (procedure) [code = 829577854] Future Scheduled COLONOSCOPY [facility] SCREENING [code = COLONOSCOPY SCREENING] Future Scheduled SHINGLES VACCINES [facility] (#1) [code = SHINGLES VACCINES (#1)] Future Scheduled BREAST CANCER [facility] Test SCREENING [code = BREAST CANCER SCREENING] Future Scheduled INFLUENZA VACCINE [facility] [code = INFLUENZA VACCINE] Encounters Start End Encounter Admission Attending Care Care Encounter Source Date/Time Date/Time Type Type Clinicians Facility Department ID 2022-02-03 [id number] [place] 14:57:40 GHADA [id number] [facility] 2022-01-07 [facility] [id number] [place] 11:21:13 REMINGTON [facility] 2022-02-03 2022-02-03 Telephone KAMARI Bingham 6400 [id number] 1 [id number] [place] 00:00:00 00:00:00 Ghada JUSTIN HARTMANN [id number] Health 9.2.7.2.686 [id number] 2022-01-07 2022-01-07 Office EwaKAMARI 1.2.840.114 [id number] [place] 10:30:00 11:21:16 Visit Remington LUCIANOBERG [id number] Health 9.2.7.2.686 [id number] 2021-12-29 2021-12-29 Telephone Kaylee Oscar [place] 1.2.840. 114 [id number] [place] 00:00:00 00:00:00 Kaylee Oscar [id number] Health MEDICAL 9.2.7.2.686 [place] [id number] 2021-11-17 2021-11-17 Outpatient C SIF, [facility] [place] [id number] [facility] 08:58:00 08:58:00 ELIJAH gusman [place] 2021-11-04 2021-11-04 Outpatient [facility] [id number] [place] 00:00:00 00:00:00 ELIJAH Nails [facility] 2021-10-21 2021-10-21 Outpatient [facility] [id number] [place] 00:00:00 00:00:00 ELIJAH [address] 2021-03-18 2021-03-19 Emergency Kahlil Whitaker. 1.2.840.1 [id number] Methodi 10:03:00 10:59:00 Emory Bailey 61971.1.1 0 72 [facility] K. 3.430.2.7 Hospita .3.068413 l .8 2021-03-18 2021-03-18 Surgery Lynn, 1.2.840.1 [id number] Methodi 12:30:00 13:30:00 Emory Warner 30940.1.1 814 s t 3.430.2.7 Hospit a .3.069484 l .8 2021-03-09 2021-03-09 Refill KAMARI Tavarez 6410 1.2.840.114 [id number] 00:00:00 00:00:[address] 350.1.13.58 9.2.7.2.686 [id number] 2021-02-21 [facility]AMARI TAVAREZ Mult[facility] [id number] [place] 10:00:00 10:00:00 t; MICAELA TAVAREZ M.D. y - Physic Dylan HINOJOSA [facility] 2021-01-17 2021-01-17 Office Siff, 1.2.840.1 [id number] Methodi 08:26:50 09:38:12 Visit Elijah Cunningham 43580.1.1 826 s t 3.430.2.7 Hospit a .3.355358 l .8 2021-01-17 2021-01-17 Travel 1.2.840.1 1.2.043.972 [id number] Methodi 00:00:00 00:00:[address] 3.430.2.7 0.2.7.3.698 Ho spita .3.637568 084.8 l .8 2021-01-13 2021-01-13 Travel 1.2.840.1 1.2.412.815 [id number] Methodi 00:00:00 00:00:[address] 3.430.2.7 0.2.7.3.698 Ho spita .3.846131 084.8 l .8 2020-12-27 2020-12-27 [facility] 1.2.840.1 [id number] Methodi 15:45:00 23:59:00 Encounter [place] 02068.1.1 390 s t [place] 3.430.2.7 Hospi ta .3.790980 l .8 2020-12-27 2020-12-27 Travel 1.2.840.1 1.2.732.749 [id number] Methodi 00:00:00 00:00:[address] 3.430.2.7 0.2.7.3.698 Ho spita .3.465418 084.8 l .8 2020-12-25 2020-12-25 [facility], 1.2.840.1 [id number] Methodi 00:00:00 00:00:00 Annie Robinnathan 05032.1.[address] [place] 3.430.2.7 Hospi ta .3.807652 l .8 2020-12-20 2020-12-20 KAMARI Sommers [facility] 725 [id number] [place] 08:20:00 08:20:00 t; WILLIAM NURSE lty - Phy sici NURSE William [facility] 2020-12-18 2020-12-18 Jonelle THOMAS [facility] [id number] [place] 08:20:00 08:20:00 t; WILLIAM, NURSE Phy sici NURSE [facility] 2020-12-03 2020-12-03 Jonelle BINGHAM [facility] [id number] [place] 10:00:00 10:00:00 t; Audelia ARCOS i, M.D. ans STEVEN, M.D. 2020-12-03 2020-12-03 Jonelle BINGHAM [facility] [id number] [place] 10:00:00 10:00:00 t; Audelia ARCOS i, M.D. ans STEVEN, M.D. 2020-11-20 2020-11-20 [facility] WILLIAM, UTP [facility] 717 [id number] [place] 08:20:00 08:20:00 t; NURSE WILLIAM lty - Phy sici NURSE William [facility] 2020-10-23 2020-10-23 Office [facility], 1.2.840.1 [id number] Methodi 09:33:39 10:16:21 Visit Elijah Cunningham 03761.1.1 222 s t 3.430.2.7 Hospit a .3.686371 l .8 2020-10-23 2020-10-23 Travel 1.2.840.1 1.2.898.465 [id number] Methodi 00:00:00 00:00:[address] 3.430.2.7 0.2.7.3.698 Ho spita .3.869549 084.8 l .8 2020-10-17 2020-10-17 Travel 1.2.840.1 1.2.601.965 3424 [id number] Methodi 00:00:00 00:00:[address] 3.430.2.7 0.2.7.3.698 Ho spita .3.231560 084.8 l .8 2020-10-08 2020-10-08 [facility] 1.2.840.1 [id number] Methodi 10:30:45 23:59:00 Alannah [place] 86950.1.1 066 s t [place] 3.430.2.7 Hospi ta .3.619366 l .8 2020-10-08 2020-10-08 Travel 1.2.840.1 1.2.366.142 5429 [id number] Methodi 00:00:00 00:00:[address] 3.430.2.7 0.2.7.3.698 Ho spita .3.967466 084.8 l .8 2020-10-08 2020-10-08 Transcribe [facility], 1.2.840.1 [id number] Methodi 00:00:00 00:00:00 Orders [place] [address]508.1.[address] [place] 3.430.2.7 Hospi ta .3.379317 l .8 2020-09-23 2020-09-24 Hospital [facility], 1.2.840.1 [id number] Methodi 05:22:00 10:27:00 Encounter [place] 35627.1.1 036 s t [place] 3.430.2.7 Hospi ta .3.496636 l .8 2020-09-23 2020-09-23 Surgery [facility], 1.2.840.1 [id number] Methodi 07:15:00 12:50:[address] [place] [address] [place] 3.430.2.7 Hospi ta .3.437238 l .8 2020-09-23 2020-09-23 Anesthesia Julio Brady 1.2.840 .1 [id number] Methodi 07:03:00 11:27:00 Event Glenys Mahoney 74770.1.[address] 3.430.2.7 Hospit a .3.730638 l .8 2020-09-18 2020-09-18 Pre-Admiss [facility], 1.2.840.1 [id number] Methodi 09:35:37 10:35:37 ion [place] [address].1.[address] Testing [place] 3.430.2.7 Hospi ta .3.443359 l .8 2020-09-18 2020-09-18 Travel 1.2.840.1 1.2.444.853 [id number] Methodi 00:00:00 00:00:[address] 3.430.2.7 0.2.7.3.698 Ho spita .3.724596 084.8 l .8 2020-09-13 2020-09-13 Hospital [facility] 1.2.840.1 [id number] Methodi 08:55:33 23:59:00 Encounter [place], [address].1.[address] Wilfred E. 3.430.2.7 Hos baldo .3.492319 l .8 2020-09-13 2020-09-13 [facility] 1.2.840.1 [id number] 2 [id number] Methodi 08:55:14 23:59:00 Encounter frank, [address]273.1.[address] Wilfred E. 3.430.2.7 Hos baldo .3.644462 l .8 2020-09-13 2020-09-13 Travel 1.2.840.1 1.2.255.777 [id number] Methodi 00:00:00 00:00:[address] 3.430.2.7 0.2.7.3.698 Ho spita .3.779911 084.8 l .8 2020-09-11 2020-09-11 Travel 1.2.840.1 1.2.645.453 1410 [id number] Methodi 00:00:00 00:00:[address] 3.430.2.7 0.2.7.3.698 Ho spita .3.150181 084.8 l .8 2020-08-23 2020-08-23 [facility] 1.2.840.1 [id number] Methodi 14:07:21 23:59:00 Alannah Townsend [address]33.1.[address] 3.430.2.7 Hospit a .3.020444 l .8 2020-08-23 2020-08-23 Travel 1.2.840.1 1.2.446.878 [id number] [id number] Methodi 00:00:00 00:00:[address] 3.430.2.7 0.2.7.3.698 Ho spita .3.601002 084.8 l .8 2020-08-21 2020-08-21 [employer] Evan, 1.2.840.1 [id number] Methodi 11:07:53 11:43:20 linn Townsend 25597.1.1 508 s t 3.430.2.7 Hospit a .3.583897 l .8 2020-08-21 2020-08-21 Travel 1.2.840.1 1.2.435.221 [id number] Methodi 00:00:00 00:00:[address] 3.430.2.7 0.2.7.3.698 Ho spita .3.110611 084.8 l .8 2020-08-13 2020-08-[address] [facility], [facility] [id number] [place] 14:00:00 14:00:00 t; CO19, PROVIDERROS Healthy P hysici [facility] 2020-08-12 2020-08-12 [facility] [id number] [place] 09:00:00 09:00:00 t; MICAELA TAVAREZ M.D. Physici BINH, M.D. [facility] 2020-05-13 2020-05-13 [id number] [place] 08:40:00 08:40:00 t; CO19, PROVIDERSGENA lty - P hysici [facility] William al MANA 2020-02-16 2020-02-16 Appointmen [facility] [id number] [place] 10:30:00 10:30:00 t; MICAELA TAVAREZ M.D. lty - Physici BINH, M.D. Sienna al 2020-01-06 2020-01-06 [facility] Multispecia [id number] [place] 08:30:00 08:30:00 t; MARIA C RANGEL M.D. lty - P hysici William LOMBARDI M.D. 2019-12-12 2019-12-12 Appointsheron B[facility]LL[facility] Urology - [id number] [place] 10:00:00 10:00:00 t; Jenaro ARCOS i, M.D. Medical ans STEVEN, Center M.D. 2019-09-12 2019-09-12 [facility] Multispecia [id number] [place] 14:00:00 14:00:00 t; MARIA C RANGEL M.D. lty - P hyWilliam Galeano M.D. 2019-09-02 2019-09-02 [facility] [id number] [place] 09:30:00 09:30:00 t; MARIA C RANGEL M.D. P al Lerma M.D. 2019-08-22 2019-08-22 Jonelle [facility] Multispecia [id number] [place] 13:00:00 13:00:00 t; MICAELA TAVAREZ M.D. lty - Physici Dylan HINOJOSA 2019-07-17 2019-07-17 [facility] [id number] [place] 15:00:00 15:00:00 t; MARIA C RANGEL M.D. P al Lerma M.D. 2019-06-19 2019-06-19 [facility] Multispecia [id number] [place] 08:00:00 08:00:00 t; MARIA C RANGEL M.D. lty - P William Lerma M.D. 2019-06-12 2019-06-12 Jonelle [facility] Multispecia [id number] [place] 13:00:00 13:00:00 t; MICAELA TAVAREZ M.D. lty - Physicethan HINOJOSA M.D. [facility] 2019-05-30 2019-05-30 [facility] Multispecia [id number] [place] 08:00:00 08:00:00 t; MARIA C RANGEL M.D. lty - P William Leram M.D. 2018-12-13 2018-12-13 Jonelle [facility] Urologic [id number] [place] 10:00:00 10:00:00 t; Matrin ARCOS M.D. ans STEVEN, M.D. 2018-11-29 2018-11-29 [facility] CLAIRE, [facility] William [id number] [place] 11:30:00 11:30:00 t; MARIA C RANGEL M.D. Village P hysici FAITH, ans M.D. 2018-03-04 2018-03-04 [facility] WILLIAM, [facility] [id number] [place] 16:00:00 16:00:00 t; TOÑITO THOMAS ECHO [facility] 2018-02-26 2018-02-26 [facility], [facility] William [id number] [place] 08:30:00 08:30:00 t; Dylan SHIPLEY Ph, ans SIMBO, M.D. 2018-01-27 2018-01-27 [facility] APRILEthan, [facility] William [id number] [place] 10:00:00 10:00:00 t; MARIA C RANGEL M.D. [place] P al Lerma M.D. 2017-12-21 2017-12-21 [facility] ANGELLA, [facility] Urologic [id number] [place] 08:00:00 08:00:00 t; Martin ARCOS M.D. ans STEVEN, M.D. 2017-07-09 2017-07-09 [facility] CLAIRE, [facility] [id number] [place] 15:00:00 15:00:00 t; MARIA C RANGEL M.D. P hysici FAITH, ans M.D. 2017-06-22 2017-06-22 Jonelle BINGHAM, [facility] UTP [id number] [place] 09:00:00 09:00:00 t; Audelia ARCOS i, M.D. ans STEVEN, M.D. 2017-05-24 2017-05-24 [facility] CLAIRE, [facility] UTP [id number] [place] 08:00:00 08:00:00 t; MARIA C RANGEL M.D. P hysici FAITH, ans M.D. 2017-05-11 2017-05-11 [facility] APRILI, [facility] UTP [id number] [place] 11:15:00 11:15:00 t; MARIA C RANGEL M.D. P hysici FAITH, ans M.D. 2016-12-22 2016-12-22 [facility] ANGELLA, [facility] UTP [id number] [place] 09:00:00 09:00:00 t; Audelia ARCOS i, M.D. ans STEVEN, M.D. 2016-08-07 2016-08-07 [facility] ANGELLA, [facility] UTP [id number] [place] 13:30:00 13:30:00 t; Audelia ARCOS i, M.D. ans STEVEN, M.D. 2016-07-31 2016-07-31 [facility] ANGELLA, [facility] UTP [id number] [place] 13:30:00 13:30:00 t; Audelia ARCOS i, M.D. ans STEVEN, M.D. 2016-07-24 2016-07-24 [facility] YAMILET, [facility] UTP [id number] [place] 14:00:00 14:00:00 t; HÉCTOR WOODARD, PEDRO Ph diomedes ANAYA NP [facility] 2016-07-13 2016-07-13 [facility] APRIL, [facility] UTP [id number] [place] 14:30:00 14:30:00 t; MARIA C RANGEL M.D. P hysici FAITH, ans M.D. 2016-06-16 2016-06-16 [facility] ANGELLA, [facility] UTP [id number] [place] 09:00:00 09:00:00 t; Audelia ARCOS i, M.D. ans STEVEN, M.D. 2016-03-27 2016-03-27 [facility] ROSA MARIASEBASYARY, [facility] UTP [id number] [place] 08:40:00 08:40:00 t; Dylan SHIPLEY Ph al Das M.D. 2016-03-23 2016-03-23 [facility] SENA, [facility] UTP [id number] [place] 07:30:00 07:30:00 t; NUCLEAR al Valles i NUCLEAR 2016-03-19 2016-03-19 [facility] CLAIRE, [facility] UTP [id number] [place] 10:00:00 10:00:00 t; MARIA C RANGEL M.D. P al Lerma M.D. 2016-02-14 2016-02-14 [facility] [id number] [place] 09:30:00 09:30:00 t; WILLIAM, ECHO Phy sici ECHO ans 2016-02-07 2016-02-07 [facility]HO[facility] [id number] [place] 14:40:00 14:40:00 t; Dylan SHIPLEY Ph al Das M.D. 2016-01-28 2016-01-28 [facility] [id number] [place] 15:00:00 15:00:00 t; Dylan SHIPLEY Ph al Das M.D. 2016-01-17 2016-01-17 [facility] [id number] [place] 13:30:00 13:30:00 t; Audelia TOMAS i, P.A. ans THOM, P.A. 2016-01-10 2016-01-10 [facility] [id number] [place] 13:30:00 13:30:00 t; Audelia TOMAS i, P.A. ans THOM, P.A. 2016-01-03 2016-01-03 [facility] [id number] [place] 13:30:00 13:30:00 t; Audelia TOMAS i, P.A. ans THOM, P.A. 2015-11-12 2015-11-12 [facility] [id number] [place] 09:00:00 09:00:00 t; Audelia Arcos i, M.D. ans Steven, M.D. 2015-10-29 2015-10-29 [facility] [id number] [place] 08:30:00 08:30:00 t; MARIA C RANGEL M.D. P hysici FAITH, ans M.D. Results Test Description Test Time Test Comments Results Result Comments Source ECG Pre/Post Op 2021-03-25 22:43:57 Test Item Value Reference Range Interpretation Comme nts Ventricular rate (test code = 253) Atrial rate (test code = 255) TX interval (test code = 266) QRSD interval (test code = 260) QT interval (test code = 264) QTC interval (test code = 265) P axis 1 (test code = 267) QRS axis 1 (test code = 268) T wave axis (test code = 270) EKG impression (test code = 273) Sinus rhythm with short TX-Otherwi se normal ECG-In automated comparison with ECG of 18-MAR-2021 10:07,-No significant change was found- STUS [facility] lab [id number] 16:12:42 Test Item Value Reference Range Interpretation Comments Cath EF Quantitative 60 % (test code = [id number]) WILLIAN (test code = WILLIAN) Normal LMLAD, CFX plaqueRCA long stented area ~ 40%Proximal portion 70% w damping w a 6 F guide KENDALL 3 flowLVEDP 9EF 60% Successful PCI RCAJR4 w SH0.014 HTF2.5 x 12 Resolute0% post, KENDALL 3 flow [facility] [id number] 23:38:55 Test Item Value Reference Range Interpretation Comments Ventricular rate (test code = 253) Atrial rate (test code = 255) TX interval (test code = 266) QRSD interval (test code = 260) QT interval (test code = 264) QTC interval (test code = 265) P axis 1 (test code = 267) QRS axis 1 (test code = 268) T wave axis (test code = 270) EKG impression (test Normal sinus code = 273) rhythm-Low voltage QRS-In automated comparison with ECG of 18-SEP-2020 10:13,-No significant change was found- [facility] Chest 1 Vw [id number] 16:27:56SINGLE VIEW CHEST, 03/18/2021 Clinical History: Chest pain.Technique: Single, portable AP view chest.Comparison: None. Impression:1.Lungs are clear and symmetrically inflated.2.No pleural effusions or pneumothorax.3.Normal heart size and mediastinal contour for technique.4.Normal pulmonary vasculature.5.Intact skeleton. Interface, Radiology Results Incoming - 03/18/2021 11:31 AM CDT SINGLE VIEW CHEST, 03/18/2021linical History: Chest pain.Technique: Single, portable AP view chest.Comparison: None.Impression:1.Lungs are clear and symmetrically inflated.2.No pleural effusions or pneumothorax.3.Normal heart size and mediastinal contour for technique.4.Normal pulmonary vasculature.5.Intact skeleton.[facility] ED Preliminary Interpretation - Not an Order 2021-03-18 15:34:44Kahlil Whitaker MD 03/18/2021 6:01 [facility] [place] ED Preliminary Interpretation - Not an OrderPerformed by: Kahlil Whitaker MDAuthorized by: Kahlil Whitaker MD ECG reviewed by ED Physician in the a bsence of a 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: yes Previous ECG: Previous ECG: Compared to current Comparison ECG info: 09/18/2020 Comparison to previous ECG: no significant change.Interpretation: Interpretation: normal Rate: ECG rate: 61 ECG rate assessment: normal Rhythm: Rhythm: sinus rhythm Ectopy:Ectopy: none QRS: QRS axis: NormalConduction: Conduction: normal ST segments: ST segments:NormalT waves: T waves: normalMethodist HospitalLarge Joint Arthrocentesis: shoulder, R subacromial [id number] 13:30:00Elijah Lund MD 01/20/2021 10:12 AMLarge Joint Arthrocentesis: shoulder, R subacromial bursaPerformed by: Elijah Lund MDAuthorized by: Elijah Lund MD Consent given by: PatientIndications: PainLocation: ShoulderSite: R subacromial bursaUltrasound guided?: No Needle size (right): 25 GRight side approach: AnteriorRight side medications: 6 mg betamethasone acetate & sodium phosphate 6 mg/mL; 1 mL bupivacaine HCl 0.25 % (2.5 mg/mL)Patient tolerance (right): Patient tolerated the procedure well with no immediate complicationsMethodist HospitalLarge Joint Arthrocentesis: hip, L greater trochanteric [id number] 13:30:00Elijah Lund MD 01/20/2021 10:12 AMLarge Joint Arthrocentesis: hip, L greater trochanteric bursaPerformed by: Elijah Lund MDAuthorized by: Elijah Lund MD Consent given by: PatientIndications: PainLocation: HipSite: L greater trochanteric bursaUltrasound guided?: No Needle size (left): 25 GLeft side approach: LateralLeft side medications: 6 mg betamethasone acetate & sodium phosphate 6 mg/mL; 1 mL bupivacaine HCl 0.25 % (2.5 mg/mL)Patient tolerance (left): Patient tolerated the procedure well with no immediate complicationsMethodist HospitalXR Lumbar Spine 2 Or 3 [id number] 23:11:40EXAMINATION: XR LUMBAR SPINE 2 OR 3 VW CLINICAL HISTORY: M54.16 Radiculopathy lumbar region, lumbar radiculopathy COMPARISON: 10/08/2020. IMPRESSION: 2 views of the lumbar spine are interpreted. There are 5 lumbar type vertebrae. Vertebral heights preserved. No fracture or aggressive bone lesion is seen. Again noted are interbody and posterior fusions at L2-3 and L3-4. No hardware failure loosening is seen. Prominent disc degenerative changes are again noted at L4-5. [facility]- [id number] Interface, Radiology Results 12/27/2020 5:14 PM CST EXAMINATION: XR LUMBAR SPINE 2 OR 3 VWCLINICAL HISTORY: M54.16 Radiculopathy lumbarregion, lumbar radiculopathyCOMPARISON: 10/08/2020.IMPRESSION:2 views of the lumbar spine are interpreted. There are 5 lumbar type vertebrae.Vertebral heights preserved. No fracture or aggressive bone lesion is seen.Again noted are interbody and posterior fusions at L2-3 and L3-4. No hardware failure loosening is seen.Prominent disc degenerative changes are again noted at L4-5.[facility]ENTERB-[id number] HospitalLarge Joint Arthrocentesis: hip, L greater trochanteric [id number] 15:30:00Elijah Lund MD 10/23/2020 5:32 PMLarge Joint Arthrocentesis: hip, L greater trochanteric bursaConsent given by: patientSupporting DocumentationIndications: pain Procedure DetailsUltrasound gu ided: noLocation: hip - L greater trochanteric bursa Left side:Needle size: 25 GApproach: lateralLeft hip medications administered: 6 mg betamethasone acetate & sodium phosphate 6 mg/mL; 1 mL bupivacaine 0.25 % (2.5 mg/mL)Patient tolerance: patient tolerated the procedure well with no immediate complications [facility] [id number] 21:13:29 Test Item Value Reference Range Interpretation Comments Case number (test code = [id number]) Surgical pathology See link below for report (test code = PDF Lab Report [id number]) Result status (test code This is Final Report = [id number]) for [id number] [facility] HospitalOR [place] > I [id number] 17:43:22EXAMINATION: OR [place] > 1 HOUR C-arm fluoroscopy was requested in OR. LOCATION: [place] 3 OR PRO CEDURE: C-Arm for XLIF LEFT L2-L3, POSTERIOR LUMBAR FUSION L2-L3, EXPLORATION OF L3-L4 FUSION START TIME: 0750 END TIME: 1050 FLUORO TIME: 02 min 18 sec DOSE (mGy): 50.44 TECH(S): IAM AMATO IMPRESSION: Intraoperative fluoroscopic images. Radiologist was not present during the examination.Separate operative report will be issued by the physician performing the procedure. [id number] Interface, Radiology Results Incoming - 09/23/2020 11:46 AM CST EXAMINATION: OR [place] > 1 HOURC-arm fluoroscopy was requested in OR. LOCATION: [place] PROCEDURE: C-Arm for XLIF LEFT L2-L3, POSTERIOR LUMBAR FUSION L2-L3, EXPLORATION OF L3-L4 FUSION START TIME: 0750 END TIME: 1050 FLUORO TIME: 02 min 18 sec DOSE (mGy): 50.44 TECH(S): IAM AMATOIMPRESSION:Intraoperative fluoroscopic images. Radiologist was not present during the examination.Separate operative report will be issued by the physician performing the procedure.[id number] [id number] 13:30:49Julio Brady MD 09/23/2020 7:31 AMAirway Date/Time: 09/23/2020 7:18 AMPerformed by:Julio Brady MDAuthorized by: Julio Brady MD Location: ORUrgency: ElectiveDifficult Airway: No Anesthesiologist: Julio Brady MDPerformed by: anesthesiologistPreoxygenated with 100% O2: Yes C-spine Precautions Maintained Throughout: No Mask Ventilation: Not attemptedFinal Airway Type: Endotracheal airwayFinal Endotracheal Airway: ETTCuffed: Yes Technique Used: Direct laryngoscopyDevices/Methods Used in Placement: BougieInsertion Site: OralBlade Type: MacintoshLaryngoscope Blade/Videolaryngoscope Blade Size: 3ETT Size (mm): 7.0Cuff at minimum o cclusion pressure: Yes Measured from: GumsETT to Gums (cm): 21Placement Verified by: CO2 detection, direct visualization and equal breath sounds Laryngoscopic view: Grade IIb - view of arytenoids or posterior of glottis onlyRapid Sequence Induction (RSI): No Modified RSI: Yes Number of Attemptsat Approach: [address] [place] [address] HIP WO CONTRAST [id number] 16:23:18 EXAMINATION: MRI HIP WO CONTRAST LT CLINICAL HISTORY: M54.16 Radiculopathy lumbar region COMPARISON: Radiographs performed on 06/28/2020. TECHNIQUE: Multiplanar multisequence MRI of the left hip wasperformed without contrast. FINDINGS: There is no acute traumatic or stress related fracture. There is no bone marrow edema, suspicious osseous lesion, or avascular necrosis of the femoral heads. Thereare no hip joint effusions. There is a focal, nondisplaced tear at the superior aspect of the left acetabular labrum. There is a chronic, low-grade partial thickness tear of the left common hamstring tendon at its ischial tuberosity origin. Otherwise, the muscles and tendons about both hip joints are intact. No acute strain or acute tendon tear is identified. There is trace fluid within the left greater trochanteric bursa. No other bursal fluid is identified. The visualized portions of the sciatic nerves are normal in appearance. There is no soft tissue mass or soft tissue fluid collection. The partially visualized intra-abdominal and intrapelvic structures are without acute abnormality. IMPRESSION: 1.No acute osseous or acute musculotendinous pathology. 2.Mild greater trochanteric bursitis of the left hip. 3.Focal, nondisplaced tear at the superior aspect of the left acetabular labrum. [facility]-U [id number] Interface, Radiology Results 09/13/2020 10:26 AM CST EXAMINATION: MRI HIP WO CONTRAST LTCLINICAL HISTORY: M54.16 Radiculopathy lumbar regionCOMPARISON: Radiographs performed on 06/28/2020.TECHNIQUE: Multiplanar multisequence MRI of the left hip was performed without contrast.FINDINGS:There is no acute traumatic or stress related fracture. There is no bone marrow edema, suspicious osseous lesion, or avascular necrosis of the femoral heads. There are no hip joint effusions. There is a focal, nondisplaced tear at the superior aspect of the left acetabular labrum.There is a chronic, low-grade partial thickness tear ofthe left common hamstring tendon at its ischial tuberosity origin. Otherwise, the muscles and tendons about both hip joints are intact. No acute strain or acute tendon tear is identified. There is trace fluid within the left greater trochanteric bursa. No other bursal fluid is identified.The visualized portions of the sciatic nerves are normal in appearance. There is no soft tissue mass or soft tissue fluid collection. The partially visualized intra-abdominal and intrapelvic structures are without acute abnormality.IMPRESSION:1.No acute osseous or acute musculotendinous pathology.2.Mild greater trochanteric bursitis of the left hip.3.Focal, nondisplaced tear at the superior aspect of the left acetabular labrum.[facility]-[id number] HospitalXR Lumbar Spine Ap Lateral Flexion And [id number] 15:47:00EXAMINATION: XR LUMBAR SPINE AP LATERAL FLEXION AND EXTENSION CLINICAL HISTORY: M54.16 Radiculopathy lumbar region COMPARISON: August 23, 2020 IMPRESSION: 4 views of lumbar spine were obtained.5 nonrib- bearing lumbar type vertebrae.Convexity of the upper lumbar spine to the right and lower lumbar spine to the left.L3-4 fusion with transpedicular screws, interconnecting rods and disc spacer. Solid bony bridging at disc level. No evidence of hardware loosening. Laminectomy changes at these levels.No compression fractures or aggressive bony lesions.Prominent disc space narrowing an endplate degenerative changes at L2-3.No abnormal motion on flexion-extension views. [facility]-[id number] Interface, Radiology Results Incoming - 09/13/2020 9:50 AM CST EXAMINATION: XR LUMBAR SPINE AP LATERAL FLEXION AND EXTENSIONCLINICAL HISTORY: M54.16 Radiculopathy lumbar regionCOMPARISON: August 23, 2020IMPRESSION:4 views of lumbar spine were obtained.5 nonrib-bearing lumbar type vertebrae.Convexity of the upper lumbar spine to the right and lower lumbar spine to the left.L3-4 fusion with transpedicular screws, interconnecting rods and disc spacer. Solid bony bridging at disc level. No evidence of hardware loosening. Laminectomy changes at these levels.No compression fractures or aggressive bony lesions.Prominent disc space narrowing an endplate degenerative changes at L2-3.No abnormal motion on flexion-extension views.[facility]-[id number] [facility] Lumbar Spine W Wo [id number] 21:10:23Exam: MRI of the lumbar spine with and without contrastHistory: Stenosis, radiculopathyComparison studies: MRI of the lumbar spine March 15, 2020 Technique: Multiplanar multisequence MRI of the lumbar spine. Contrast: YesComplications: None FINDINGS: Number of non-rib bearing lumbar vertebral bodies: 5.Alignment: Straightening of the lumbar lordosis.Mild levocurvature centered at L2-L3.Soft tissues: No signal abnormalities.Posterior paraspinal muscles: Fatty infiltration of the paraspinal musculaturesecondary to moderate to severe atrophy more significant at the lumbosacral junction.Conus medullaris:Normal, ends at T12-L1.Cauda equina: No masses or arachnoiditis.Posterior and intervertebral fusion head L3-4 with posterior decompression changes. Vertebrae: No fractures, infection or neoplasm. Degenerative changes: L1-L2: Disc degeneration with loss of T2 signal. Bilateral facet hypertrophy and mild ligamentum flavum buckling results in no significant canal stenosis or foraminal narrowing. L2-L3: Disc degeneration with loss of T2 signal and obliterated left intervertebral space. Modic type I changes towards the left side. Asymmetric left disc bulge with superimposed left subarticular and foraminal disc protrusion results in moderate narrowing of the left subarticular recess and moderate left foraminal narrowing. No significant central canal stenosis or right foraminal narrowing. L3-L4:Intervertebral and posterior fusion with laminectomy changes. Patent canal and foramina. Adjacent susceptibility artifact limits evaluation. L4-L5: Disc degeneration with decreased intervertebral space. Improved Modic type I changes with mild residual edema. Diffuse disc bulge with superimposed small right foraminal disc protrusion, severe right and moderate left facet hypertrophy results in no significant canal stenosis, moderate right and mild left foraminal narrowing, stable. L5-S1: Mild facet hypertrophy with patent canal and foramina. Sacrum:Symmetric. No signal abnormalities. IMPRESSION: 1. Moderate narrowing of the left subarticular recess and left foramina at L2-L3 secondary to left subarticularand foraminal disc protrusion is stable from previous examination. 2. Posterior and intervertebral fusion with posterior decompression at L3-4, stable. 3. Moderate right degenerative foraminal narrowing at L4-L5, stable. Other stable degenerative changes as described above.. . Interface, RadiologyResults Incoming - 08/23/2020 4:13 PM CDT Exam: MRI of the lumbar spine with and without contrastHistory: Stenosis, radiculopathyComparison studies: MRI of the lumbar spine March 15, 2020Technique: Multiplanar multisequence MRI of the lumbar spine.Contrast: YesComplications: NoneFINDINGS:Number of non-rib bearing lumbar vertebral bodies: 5.Alignment: Straightening of the lumbar lordosis.Mild levocurvature centered at L2-L3.Soft tissues: No signal abnormalities.Posterior paraspinal muscles: Fatty infiltration of the paraspinal musculature secondary to moderate to severe atrophy more significant at the lumbosacral junction.Conus medullaris:Normal, ends at T12-L1.Cauda equina: No masses or arachnoiditis.Posterior and intervertebral fusion head L3-4 with posterior decompression changes.Vertebrae: No fractures, infection or neoplasm.Degenerative changes:L1-L2: Disc degeneration with loss of T2 signal. Bilateral facet hypertrophy and mild lig amentum flavum buckling results in no significant canal stenosis or foraminal narrowing.L2-L3: Disc degeneration with loss of T2 signal and obliterated left intervertebral space. Modic type I changes towards the left side. Asymmetric left disc bulge with superimposed left subarticular and foraminal disc protrusion results in moderate narrowing of the left subarticular recess and moderate left foraminal narrowing. No significant central canal stenosis or right foraminal narrowing.L3-L4:Intervertebraland posterior fusion with laminectomy changes. Patent canal and foramina. Adjacent susceptibility artifact limits evaluation.L4-L5: Disc degeneration with decreased intervertebral space. Improved Modictype I changes with mild residual edema. Diffuse disc bulge with superimposed small right foraminal disc protrusion, severe right and moderate left facet hypertrophy results in no significant canal stenosis, moderate right and mild left foraminal narrowing, stable.L5-S1: Mild facet hypertrophy with pat ent canal and foramina.Sacrum:Symmetric. No signal abnormalities.IMPRESSION:1. Moderate narrowing of the left subarticular recess and left foramina at L2-L3 secondary to left subarticular and foraminal disc protrusion is stable from previous examination.2. Posterior and intervertebral fusion with posterior decompression at L3-4, stable.3. Moderate right degenerative foraminal narrowing at L4-L5, stable. Other stable degenerative changes as described above... [facility]. [facility] - COVID-19/[id number] 00:00:00 Test Item Value Reference Range Interpretation Comments SARS-CoV-2 REPORT ClinicalHistory: N (test code = Z20.828 Exposure to SARS-CoV-2 REPORT) COVID-19 virus.COVID-19/SARS-CoV -2: COVID-19/SARS-CoV-2: Negative.BodySite: Nasopharyngeal.Special Requests: COVID-19/SARS-Cov-2.CPT Code: 69388.ICDCode: Z20.828. [facility][id number] 00:00:00 Test Item Value Reference Range Interpretation Comments SARS-CoV-2 REPORT ClinicalHistory: N (test code = Z20.828 Exposure to SARS-CoV-2 REPORT) COVID-19 virus.COVID-19/SARS-CoV -2: COVID-19/SARS-CoV-2: Negative.BodySite: Nasopharyngeal.Special Requests: COVID-19/SARS-Cov-2.CPT Code: 27379.ICDCode: Z20.828. [facility]] CMP [id number] 07:58:01 Test Item Value Reference Range Interpretation Comments Sodium Level 139 {mEq/l} 135-145 (test code = 2951-2) Potassium Level 4.6 {mEq/l} 3.5-5.1 (test code = 2823-3) Chloride Level 104 {mEq/l} 95-109 (test code = 2075-0) Carbon Dioxide 26 {mEq/l} 24-32 (test code = 8-9) AGAP (test code = 13.6 {mEq/l} 10.0-20.0 31891-3) Glucose Lvl; 106 mg/dl 70-99 Adult reference range Above High values reflect the Threshold (test clinical mayank delinesof the code = 2345-7) [employer]. Creatinine Lvl; 1.60 mg/dl 0.50-1.40 Above High Threshold (test code = 2160-0) Blood Urea 36 mg/dl 7-22 Nitrogen; Above High Threshold (test code = 3094-0) BUN/Creatinine 22 6-25 Ratio (test code = 3097-3) Total Protein 7.8 g/dl 6.4-8.4 (test code = 2885-2) Albumin Lvl (test 4.3 g/dl 3.5-5.0 code = 1751-7) Globulin (test 3.5 g/dl 2.7-4.2 code = 99236-2) A/G Ratio (test 1.2 0.7-1.6 code = 1759-0) Calcium Level 9.2 mg/dl 8.5-10.5 Total (test code = 86341-3) ALT (test code = 33 u/l 0-65 1743-4) AST (test code = 25 u/l 0-37 04623-7) Bili Total (test 0.6 mg/dl 0.2-1.3 code = 1975-2) Alk Phos (test 84 u/l 39-136 The pediatric reference code = 1783-0) ranges for th is test represent a CLSI-basedtrans ference of the CALIPER tim abase of pediatric refer ence intervals to e[employer] [place] analyzer (Clinical Biochemistry 46 (2013): 8517-4783). [facility] has not internally validated these reference ranges and therefore they should be used only in th e context of a thoroughcl inical assessment. eGFR (test code = 32 The eGFR i s calculated 46895-8) {ML/MIN/1.7} using the CKD-E PI formula. In mos t young, healthyindividu als the eGFR will be >9 0 mL/min/1.73m2. The eGFR declines with a ge. AneGFR of 60-89 may be normal in some population s, particularly th e elderly, forwhom the CKD -EPI formula has not been extensively madyson idated. Use of the eGFR isnot recommended in the following populations:Ind ividuals with unstable c reatinine concentrations, including patient s and those with seri ous co-morbid conditions.Gem ents with extremes in mus daniel mass or diet.The tim a above are obtained fr om the National Kidney Disease Education Progr am(NKDEP) which kimberly love recommends that when the eGFR is used in patientswith ex tremes of body mass index for purposes of lam g dosing, the eGFR should be multiplied by t he estimated BMI. [facility]] LIPID [id number] 07:58:01 Test Item Value Reference Range Interpretation Comments Chol (test code = 2093-3) 150 mg/dl <=199 Trig; Above High Threshold (test 251 mg/dl <=149 code = 2571-8) HDL Cholesterol (test code = 66 mg/dl >=61 2085-9) CHD Risk; Below Low Threshold (test 2.27 3.90-5.80 code = 62203-1) LDL (test code = 77225-7) 34 mg/dl <=99 VLDL (test code = VLDL) 50 [facility]] TSH, 3RD GENERATION W/REFLEX TO [id number] 07:58:01 Test Item Value Reference Range Interpretation Comments TSH (test code = 89450-7) 2.000 {uIU/ml} 0.360-3.740 [facility]] CBC (INCLUDES DIFF/PLT)2020-01-08 07:58:01 Test Item Value Reference Range Interpretation Comments WBC (test code = 6690-2) 6.2 {K/CMM} 3.7-10.4 RBC; Below Low Threshold (test 3.57 {M/CMM} 4.20-5.40 code = 789-8) Hgb (test code = 718-7) 12.0 g/dl 12.0-16.0 Hct; Below Low Threshold (test 35.9 % 36.0-48.0 code = 63718-8) MCV; Above High Threshold (test 100.8 fL 80.0-98.0 code = 787-2) MCH; Above High Threshold (test 33.6 pg 27.0-31.0 code = 785-6) MCHC (test code = 786-4) 33.4 g/dl 32.0-36.0 RDW (test code = 788-0) 13.9 % 11.5-14.5 Platelet (test code = 51818-7) 187 {K/CMM} 133-450 Mean Platelet Volume (test code 7.9 fL 7.4-10.4 = 43789-0) [facility]] [id number] 07:58:01 Test Item Value Reference Range Interpretation Comments Segmented Neutrophils; Below Low 44.7 % 45.0-75.0 Threshold (test code = 22869-9) Monocytes (test code = 95561-9) 6.3 % 2.0-12.0 Lymphocytes; Above High Threshold 46.8 % 20.0-40.0 (test code = 72328-9) Eosinophils (test code = 30796-6) 1.6 % 0.0-4.0 Basophils (test code = 706-2) 0.6 % 0.0-1.0 Segs-Bands # (test code = 2.8 {K/CMM} 1.5-8.1 87116-7) Lymphocytes # (test code = 2.9 {K/CMM} 1.0-5.5 18651-6) Monocytes # (test code = 04815-1) 0.4 {K/CMM} 0.0-0.8 Eosinophils # (test code = 0.1 {K/CMM} 0.0-0.5 99268-5) [facility]] HEMOGLOBIN [id number] 07:58:01 Test Item Value Reference Range Interpretation Comments Hemoglobin A1c (test code = 4548-4) 5.4 % <=5.6 [facility]] CMP [id number] 08:00:01 Test Item Value Reference Range Interpretation Comments Sodium Level 137 {mEq/l} 135-145 (test code = 2951-2) Potassium Level 4.6 {mEq/l} 3.5-5.1 (test code = 2823-3) Chloride Level 102 {mEq/l} 95-109 (test code = 2075-0) Carbon Dioxide 28 {mEq/l} 24-32 (test code = 8-9) AGAP (test code = 11.6 {mEq/l} 10.0-20.0 51011-8) Glucose Lvl (test 97 mg/dl 70-99 Adult refe rence range code = 2345-7) values reflec t the clinical guidel inesof the [place] [employer]abet es Association. Creatinine Lvl 1.40 mg/dl 0.50-1.40 (test code = 2160-0) Blood Urea 35 mg/dl 7-22 Nitrogen; Above High Threshold (test code = 3094-0) BUN/Creatinine 25 6-25 Ratio (test code = 3097-3) Total Protein 7.5 g/dl 6.4-8.4 (test code = 2885-2) Albumin Lvl (test 4.3 g/dl 3.5-5.0 code = 1751-7) Globulin (test 3.2 g/dl 2.7-4.2 code = 34489-6) A/G Ratio (test 1.3 0.7-1.6 code = 1759-0) Calcium Level 9.8 mg/dl 8.5-10.5 Total (test code = 86280-9) ALT (test code = 40 u/l 0-65 1743-4) AST; Above High 41 u/l 0-37 Threshold (test code = 27788-7) Bili Total (test 0.5 mg/dl 0.2-1.3 code = 1975-2) Alk Phos (test 83 u/l 39-136 The pediatric reference code = 1783-0) ranges for th is test represent a CLSI-basedtrans ference of the CALIPER tim abase of pediatric refer ence intervals to th [employer] [place] analyzer (Clinical Biochemistry 46 (2013): 9914-0440). [facility] has not internally validated these reference ranges and therefore they should be used only in e context of a thoroughcl inical assessment. eGFR (test code = 38 The eGFR i s calculated 73241-1) {ML/MIN/1.7} using the CKD-E PI formula. In mos t young, healthyindividu als the eGFR will be >9 0 mL/min/1.73m2. The eGFR declines with a ge. AneGFR of 60-89 may be normal in some population s, particularly th e elderly, forwhom the CKD -EPI formula has not been extensively madyson idated. Use of the eGFR isnot recommended in the following populations:Ind ividuals with unstable c reatinine concentrations, including patient s and those with seri ous co-morbid conditions.Gem ents with extremes in mus daniel mass or diet.The tim a above are obtained fr om the National Kidney Disease Education Progr am(NKDEP) which kimberly love recommends that when the eGFR is used in patientswith ex tremes of body mass index for purposes of lam g dosing, the eGFR should be multiplied by t he estimated BMI. [facility]] CBC (INCLUDES DIFF/PLT)2019-06-13 08:45:01 Test Item Value Reference Range Interpretation Comments WBC (test code = 6690-2) 6.0 {K/CMM} 3.7-10.4 RBC; Below Low Threshold (test 3.81 {M/CMM} 4.20-5.40 code = 789-8) Hgb (test code = 718-7) 12.5 g/dl 12.0-16.0 Hct (test code = 90478-8) 37.7 % 36.0-48.0 MCV; Above High Threshold (test 98.8 fL 80.0-98.0 code = 787-2) MCH; Above High Threshold (test 32.9 pg 27.0-31.0 code = 785-6) MCHC (test code = 786-4) 33.3 g/dl 32.0-36.0 RDW (test code = 788-0) 13.7 % 11.5-14.5 Platelet (test code = 49156-4) 184 {K/CMM} 133-450 Mean Platelet Volume (test code 7.7 fL 7.4-10.4 = 67995-6) [facility]] [id number] 08:45:01 Test Item Value Reference Range Interpretation Comments Segmented Neutrophils; Below Low 43.2 % 45.0-75.0 Threshold (test code = 00424-0) Monocytes (test code = 01816-7) 6.6 % 2.0-12.0 Lymphocytes; Above High Threshold 48.2 % 20.0-40.0 (test code = 22098-2) Eosinophils (test code = 60556-0) 1.7 % 0.0-4.0 Basophils (test code = 706-2) 0.3 % 0.0-1.0 Segs-Bands # (test code = 2.6 {K/CMM} 1.5-8.1 93946-1) Lymphocytes # (test code = 2.9 {K/CMM} 1.0-5.5 63010-3) Monocytes # (test code = 20569-8) 0.4 {K/CMM} 0.0-0.8 Eosinophils # (test code = 0.1 {K/CMM} 0.0-0.5 70486-9) [facility]] OCCULT BLOOD, STOOL, [id number] 08:45:01 Test Item Value Reference Range Interpretation Comments Occult Blood Stool Cancel Reason: Modified (test code = 68275-4) Order [facility]] CMP [id number] 08:45:01 Test Item Value Reference Range Interpretation Comments Sodium Level 143 {mEq/l} 135-145 (test code = 2951-2) Potassium Level 4.7 {mEq/l} 3.5-5.1 (test code = 2823-3) Chloride Level 109 {mEq/l} 95-109 (test code = 2075-0) Carbon Dioxide 24 {mEq/l} 24-32 (test code = 2027-9) AGAP (test code = 14.7 {mEq/l} 10.0-20.0 28716-1) Glucose Lvl; 104 mg/dl 70-99 Adult reference range Above High values reflect the Threshold (test clinical mayank delinesof the code = 2345-7) [employer] et[employer]. Creatinine Lvl; 1.50 mg/dl 0.50-1.40 Above High Threshold (test code = 2160-0) Blood Urea 32 mg/dl 7-22 Nitrogen; Above High Threshold (test code = 3094-0) BUN/Creatinine 21 6-25 Ratio (test code = 3097-3) Total Protein 8.1 g/dl 6.4-8.4 (test code = 2885-2) Albumin Lvl (test 4.3 g/dl 3.5-5.0 code = 1751-7) Globulin (test 3.8 g/dl 2.7-4.2 code = 11224-7) A/G Ratio (test 1.1 0.7-1.6 code = 1759-0) Calcium Level 9.6 mg/dl 8.5-10.5 Total (test code = 28708-6) ALT (test code = 37 u/l 0-65 1743-4) AST (test code = 24 u/l 0-37 17791-9) Alk Phos (test 88 u/l 39-136 The pediatric reference code = 1783-0) ranges for th is test represent a CLSI-basedtrans ference of the CALIPER tim abase of pediatric refer ence intervals to [employer] [place] analyzer (Clinical Biochemistry 46 (2013): 1482-4839). [facility] has not internally validated these reference ranges and therefore they should be used only in th e context of a thoroughcl inical assessment. Bili Total (test 0.6 mg/dl 0.2-1.3 code = 1975-2) eGFR (test code = 35 The eGFR i s calculated 50517-4) {ML/MIN/1.7} using the CKD-E PI formula. In mos t young, healthyindividu als the eGFR will be >9 0 mL/min/1.73m2. The eGFR declines with a ge. AneGFR of 60-89 may be normal in some population s, particularly th e elderly, forwhom the CKD -EPI formula has not been extensively madyson idated. Use of the eGFR isnot recommended in the following populations:Ind ividuals with unstable c reatinine concentrations, including patient s and those with seri ous co-morbid conditions.Gem ents with extremes in mus daniel mass or diet.The tim a above are obtained fr om the National Kidney Disease Education Progr am(NKDEP) which additiona lly recommends that when the eGFR is used in patientswith ex tremes of body mass index for purposes of lam g dosing, the eGFR should be multiplied by t he estimated BMI. [facility]] LIPID [id number] 08:45:01 Test Item Value Reference Range Interpretation Comments Chol (test code = 2093-3) 155 mg/dl <=199 Trig; Above High Threshold (test 251 mg/dl <=149 code = 2571-8) HDL Cholesterol; Below Low 55 mg/dl >=61 Threshold (test code = 2085-9) CHD Risk; Below Low Threshold (test 2.82 3.90-5.80 code = 23877-8) LDL (test code = 72579-1) 50 mg/dl <=99 VLDL (test code = VLDL) 50 [facility]] TSH, 3RD GENERATION W/REFLEX TO [id number] 08:45:01 Test Item Value Reference Range Interpretation Comments TSH (test code = 10821-0) 2.710 {uIU/ml} 0.360-3.740 [facility][] Occult Blood, Fecal [id number] 08:45:01 Test Item Value Reference Range Interpretation Comments Occult Blood, Fecal Immunoassay Negative Negative (test code = 15865-6) [facility]] SED RATE BY MODIFIED [id number] 08:45:01 Test Item Value Reference Range Interpretation Comments Sedimentation Rate; Above High 47 {mm/hr} 0-20 Threshold (test code = 28356-4) [facility]] HEPATITIS [id number] 08:45:01 Test Item Value Reference Range Interpretation Comments Hepatitis B Surface Antigen (test Negative Negative code = 5195-3) Hepatitis C Antibody (test code = Negative 49890-6) Hepatitis B Core IgM (test code = Negative Negative 96144-6) Hepatitis A IgM (test code = Negative Negative 71494-4) [facility]] C-REACTIVE [id number] 08:45:01 Test Item Value Reference Range Interpretation Comments CRP (test code = CRP) <2.9 <=2.9 [facility]] RHEUMATOID [id number] 08:45:01 Test Item Value Reference Range Interpretation Comments Rheumatoid Factor Quantitative (test <10 0-20 code = 56632-2) [facility]] SJOGRENS ANTIBODIES (SS-A,SS-B)2019-06-13 08:45:01 Test Item Value Reference Range Interpretation Comments SS-A (Ro) Antibody (test code = 5351-2) <0.2 <=0.9 SS-b (La) Antibody (test code = 5353-8) <0.2 <=0.9 [facility][] CYCLIC CITRULLINATED PEPTIDE (CCP) AB (IGG)2019-06-13 08:45:01 Test Item Value Reference Range Interpretation Comments Cyclic Citrulline Peptide Antibody 0.5 U/ml <=2.9 (test code = 28059-3) [facility]] XR HAND MIN 3 VWS [id number] 14:03:00 Test Item Value Reference Range Interpretation Comments XR HAND MIN 3 VWS EXAM: XR HAND MIN 3 VWS BILATERAL (test code BILATERAL DATE: = XR HAND MIN 3 VWS 06/12/2019 2:36 PM CDT BILATERAL) INDICATION: Rheumatoid arthritis COMPARISON: None available TECHNIQUE: PA, lateral, and oblique radiographs of each hand DISCUSSION: No acute fracture or malalignment is identified. Joint spaces bone mineral density are preserved. No erosions, periostitis or ankylosis seen. Ring artifact seen overlying the left fourth proximal phalanx. No soft tissue abnormality is identified. IMPRESSION: 1. No acute abnormality identified.2. No radiographic evidence of inflammatory arthropathy. 06/12/2019 4:48 PM CDT Maksim Alex [facility]] XRAY SACROILIAC JOINT 1 OR 2 VWS [id number] 14:02:00 Test Item Value Reference Range Interpretation Comments XR SACROILIAC JOINT 1 EXAM: XR SACROILIAC OR 2 VWS (test code = JOINT 1 OR 2 VWS DATE: XR SACROILIAC JOINT 1 06/12/2019 2:39 PM CDT OR 2 VWS) INDICATION: Rheumatoid arthritis COMPARISON: None available TECHNIQUE: AP, RPO and LPO radiographs of the sacroiliac joints DISCUSSION: The sacroiliac joint widths are well preserved. No sclerosis or osseous erosion is seen on either side. Small osteophytes are present at bilateral SI joints.Incompletely evaluated posterior instrumented fusion of the lower lumbar spine.Small nonunited fracture/enthesophyte along the superior aspect of the left greater trochanter.Mild diffuse bony demineralization.The soft tissues are unremarkable. IMPRESSION:1. No radiographic evidence of sacroiliitis.2. Mild bilateral SI joint degenerative changes. 06/12/2019 4:45 PM CDT [facility][U] XR FOOT 2 VWS [id number] 14:02:00 Test Item Value Reference Range Interpretation Comments XR FOOT 2 VWS EXAM: XR FOOT 2 VWS BILATERAL (test code BILATERAL DATE: = XR FOOT 2 VWS 06/12/2019 2:39 PM CDT BILATERAL) INDICATION: Rheumatoid arthritis Rheumatoid arthritis COMPARISON: None available TECHNIQUE: AP, lateral and oblique radiographs of the left and right foot DISCUSSION: No acute fracture or malalignment is identified. Joint spaces bone mineral density are preserved. No erosions, periostitis or ankylosis seen. No soft tissue abnormality is identified. IMPRESSION: 1. No acute abnormality identified.2. No radiographic evidence of inflammatory arthropathy. 06/12/2019 4:47 PM CDT [facility] Digital Mammo Screening Baudilio [id number] 10:11:00BILATERAL DIGITAL SCREENING MAMMOGRAM WITH CAD: 06/09/2019CLINICAL: /Z12.31 Encounter For Screening Mammogram For Malignant Neoplasm OfBreast. Current study was evaluated with a Computer Aided Detection (CAD) system. COMPARISON:Comparison is made to exams dated: 05/26/2017 mammogram - [facility], 12/26/2014 mammogram - [facility], 12/10/2010 m ammogram, 05/31/2013 mammogram, 12/09/2009mammogram, and 12/28/2008 mammogram - [facility]. TECHNIQUE: Mammographic views were obtained using digital acquisition. Currentstudy was also evaluated with a Computer Aided Detection (CAD) system.FINDINGS:The tissue of both breasts is heterogeneously dense, which could obscuredetection of small masses. There are post operative findings in the left breast. No significant masses, calcifications, or other findings are seen in eitherbreast. There has been no significant interval change.IMPRESSION: BENIGNRECOMMENDATION:There is no mammographic evidence of malignancy. A 1 yearscreening mammogram is recommended.(06/09/2020) This exam was interpreted [id number] for URSULA Madrigal. [facility].Kasi partida/conner:06/12/2019 09:36:57 Director Marketing Communications(s): Nisha Best, [facility] MadrigalOutpatient Imagingletter sent: BI-RADS 1/2 Dense Mammogram BI-RADS: 2 Benign--Read by: Kasi Woods MDDictated Date/time: 06/12/19 09:36Electronically Signed by: Kasi Woods MD 06/12/1909:36FINAL REPORT[facility][Q] CYTOLOGY, NON-PROPERTY DISPOSAL OFFICER 2018-12-13 00:00:00 Test Item Value Reference Range Interpretation Comments CLINICAL INFORMATION See Comment N None gi huey (test code = CLINICAL INFORMATION) SCREENER (test code See Comment N YL, CT(A SCP)CT = SCREENER) screening locat ion: [facility] [address] [facility], [facility] [address] PATHOLOGIST (test See Comment N Mandy novak MD, code = PATHOLOGIST) Board Ce rtified inAnatomic Path ology and subspeciali ty inCytopathology .[phone] (electronic sig nature) [facility][Q] NON-PROPERTY DISPOSAL OFFICER, SPECIMEN [id number] 00:00:00 Test Item Value Reference Range Interpretation Comments Source (test code = See Comment CATH SPE CIMEN Source) Gross Description See Comment Catheteriz ed urine (test code = Gross specimen consists of Description) 80 cc clear yel low fluid, 1 liquid prep. Verified as to patient ID/name Gross exam(s) performed at: [facility] [address] [facility] [phone] Laboratory Dir lencho: MAGDALENA WARNER MD A DIAGNOSIS (test See Comment Negative f or code = A DIAGNOSIS) malignan t cells. See microscopic description. MICROSCOPIC DESCRIPTION: On e ThinPrep is exa mined. The specimen consists of elle ign urothelial cell s and squamous cells. [facility][O] Influenza A and B, Rapid Method (In Office)2018-01-27 00:00:00 Test Item Value Reference Range Interpretation Comments INFLUENZA A & B Rapid (test code = Negative N INFLUENZA A & B Rapid) [facility]
[2022-03-14] MEDS ORDERED: TETANUS & DIPHTHERIA TOX,ADULT 0.5 ML VIAL ONE (22:31)
--- NOTE | 2022-03-14 23:06 | RAD REPORT ---
EXAM DESCRIPTION: CT - CTHCSPWOC - 03/14/2022 10:52 pm CLINICAL HISTORY: fall COMPARISON: No comparisons TECHNIQUE: Axial 5 mm thick images of the head were obtained. Axial 2 mm thick images of the cervical spine were obtained with sagittal and coronal reconstruction images generated and reviewed. All CT scans are performed using dose optimization technique as appropriate and may include automated exposure control or mA/KV adjustment according to patient size. FINDINGS: CT HEAD WITHOUT CONTRAST: No acute hemorrhage, hydrocephalus or extra-axial collection is identified.Left parietal scalp hemato ma.No areas of brain edema or midline shift. The paranasal sinuses and mastoids are clear.The calvarium is intact. CT CERVICAL SPINE WITHOUT CONTRAST: No fracture or traumatic subluxation.No prevertebral soft tissues swelling is identified. Multilevel cervical spondylosis with varying degrees of neural foraminal narrowing. No central spinal stenosis i s appreciated. Trace anterolisthesis of C3 on C4. IMPRESSION: No acute intracranial or cervical spine findings.
--- NOTE | 2022-03-14 23:24 | EDPHYS ---
Physician Documentation [facility] Name: Kenzie Au Age: 77 yrs Sex: Female : 1945 Arrival Date: 03/14/2022 Time: 21:07 Bed 3 Private MD: ED Physician Viral Loera HPI: 03/14 23:23 This 77 yrs old Female presents to ER via Ambulatory with complaints of Fall Injury, ms3 Head Injury Without LOC-Adult. 23:23 Details of fall: The patient fell from an upright position, while standing. Onset: The ms3 symptoms/episode began/occurred 1 hour(s) ago. Associated injuries: The patient sustained injury to the head, laceration, 1.5 cm(s), swelling, tenderness. Severity of symptoms: At their worst the symptoms were very mild, a " 0" out of "10", in the emergency department the symptoms are unchanged. Historical: - Allergies: 23:01 Sulfa (Sulfonamide Antibiotics); jb4 23:01 PENICILLINS; jb4 - Home Meds: 23:01 Plavix Oral [Active]; jb4 - PMHx: 23:01 HTN; jb4 - PSHx: 23:01 heart stents; hysterectomy; back surgery; Lumpectomy of breast; jb4 - Immunization history:: Adult Immunizations up to date. - Immunization history: Last tetanus immunization: unknown. - Social history:: Smoking status: Patient/guardian denies using tobacco. ROS: 23:23 Constitutional: Negative for fever, and chills. Eyes: Negative for injury, pain, ms3 redness, and discharge, Neck: Negative for injury, pain, and swelling, Cardiovascular: Negative for chest pain, and palpitations. Respiratory: Negative for shortness of breath, cough, wheezing, and pleuritic chest pain, Abdomen/GI: Negative for abdominal pain, nausea, vomiting, diarrhea, and constipation, MS/Extremity: Negative for injury and deformity, Psych: Negative for depression, anxiety, suicide ideation, homicidal ideation, and hallucinations. 23:23 Skin: Positive for laceration(s). Exam: 23:23 Constitutional: This is a well developed, well nourished patient who is awake, alert, ms3 and in no acute distress. ENT: Nares patent. No nasal discharge, no septal abnormalities noted. Tympanic membranes are normal and external auditory canals are clear. Oropharynx with no redness, swelling, or masses, exudates, or evidence of obstruction, uvula midline. Mucous membranes moist. Chest/axilla: Normal chest wall appearance and motion. Nontender with no deformity. Cardiovascular: Regular rate and rhythm with a normal S1 and S2. No gallops, murmurs, or rubs. Normal PMI, no JVD. No pulse deficits. Respiratory: Lungs have equal breath sounds bilaterally, clear to auscultation and percussion. No rales, rhonchi or wheezes noted. No increased work of breathing, no retractions or nasal flaring. Abdomen/GI: Soft, non-tender, with normal bowel sounds. No distension or tympany. No guarding or rebound. No evidence of tenderness throughout. Psych: Awake, alert, with orientation to person, place and time. Behavior, mood, and affect are within normal limits. 23:23 Head/face: Noted is a laceration(s), that is deep, 1.5 cm(s), of the scalp. Vital Signs: 23:00 BP 133 / 62; Pulse 58; Resp 16; Temp 98.8(TE); Pulse Ox 98% on R/A; Pain 4/10; jb4 23:53 BP 105 / 5; Pulse 54; Resp 18; Pulse Ox 99% on R/A; jb4 Pearl Coma Score: 22:30 Eye Response: spontaneous(4). Verbal Response: oriented(5). Motor Response: obeys jb4 commands(6). Total: 15. 23:30 Eye Response: spontaneous(4). Verbal Response: oriented(5). Motor Response: obeys jb4 commands(6). Total: 15. Trauma Score (Adult): 22:30 Eye Response: spontaneous(1); Verbal Response: oriented(1); Motor Response: obeys jb4 commands(2); Systolic BP: > 89 mm Hg(4); Respiratory Rate: 10 to 29 per min(4); Pearl Score: 15; Trauma Score: 12 23:30 Eye Response: spontaneous(1); Verbal Response: oriented(1); Motor Response: obeys jb4 commands(2); Systolic BP: > 89 mm Hg(4); Respiratory Rate: 10 to 29 per min(4); [place]urn Score: 15; Trauma Score: 12 Laceration: 23:23 Wound Repair of 1.5cm ( 0.6in ) subcutaneous laceration to scalp. Irregularly shaped.. ms3 Minimal bleeding noted.. Hemostasis noted.. Distal neuro/vascular/tendon intact. Wound prep: Simple cleansing by me. Skin closed with 2 1-0 Prolene using staple gun. Patient tolerated well. MDM: 21:45 Patient medically screened. ms3 23:23 Differential diagnosis: abrasion, closed head injury, contusion, laceration. Data ms3 reviewed: vital signs, nurses notes, lab test result(s), radiologic studies. Data interpreted: Pulse oximetry: on room air is 99 %. Interpretation: normal. 03/14 21:47 Order name: CT Head C Spine; Complete Time: 23:14 ms3 Administered Medications: 22:32 Drug: Tetanus Toxoid,Adsorbed 0.5 ml {Electronic [employer]: [employer]. Exp: 01/10/2024. Lot jb4 #: [id number]. } Route: IM; Site: left deltoid; 23:19 Follow up: Response: No adverse reaction jb4 Disposition Summary: 03/14/22 23:23 Discharge Ordered Location: Home ms3 Condition: Stable ms3 Diagnosis - Fall on same level, unspecified ms3 - Laceration without foreign body of scalp ms3 Followup: ms3 - With: Private Physician - When: 5 days - Reason: Staple/Suture removal Discharge Instructions: - Discharge Summary Sheet ms3 - Fall Prevention in the Home, Adult ms3 - Laceration Care, Adult ms3 Forms: - Medication Reconciliation Form ms3 - Thank You Letter ms3 - Antibiotic Education ms3 - Prescription Opioid Use ms3 Signatures: Dispatcher [employer] Carson Andersen RN RN jb4 Viral Loera DO DO ms3 Corrections: (The following items were deleted from the chart) 21:48 21:47 Labs collected and sent ordered. ms3 ms3
--- NOTE | 2022-03-14 23:24 | ER ---
Nurse's Notes [facility] Name: Kenzie Au Age: 77 yrs Sex: Female : 1945 Arrival Date: 03/14/2022 Time: 21:07 Bed 3 Private MD: Diagnosis: Fall on same level, unspecified;Laceration without foreign body of scalp Presentation: 03/14 22:30 Care prior to arrival: None. Mechanism of Injury: Fall from standing position. Trauma jb4 event details: Injury occurred in the [facility]. 22:31 Chief complaint: Pt reportedly fell while getting out of the shower. Hit her head and jb4 lost consciousness. Coronavirus screen: At this time, the client does not indicate any symptoms associated with coronavirus-19. Ebola Screen: No symptoms or risks identified at this time. Initial Sepsis Screen: Does the patient meet any 2 criteria? No. Patient's initial sepsis screen is negative. Does the patient have a suspected source of infection? No. Patient's initial sepsis screen is negative. Risk Assessment: Do you want to hurt yourself or someone else? Patient reports no desire to harm self or others. Onset of symptoms was March 14, 2022. Transition of care: patient was not received from another setting of care. 22:31 Method Of Arrival: Ambulatory jb4 22:31 Acuity: AFIA 3 jb4 Historical: - Allergies: 23:01 Sulfa (Sulfonamide Antibiotics); jb4 23:01 PENICILLINS; jb4 - Home Meds: 23:01 Plavix Oral [Active]; jb4 - PMHx: 23:01 HTN; jb4 - PSHx: 23:01 heart stents; hysterectomy; back surgery; Lumpectomy of breast; jb4 - Immunization history:: Adult Immunizations up to date. - Immunization history: Last tetanus immunization: unknown. - Social history:: Smoking status: Patient/guardian denies using tobacco. Screenin:30 Abuse screen: Denies threats or abuse. Tuberculosis screening: No symptoms or risk jb4 factors identified. 22:30 Nutritional screening: No deficits noted. Fall Risk None identified. jb4 Primary Survey: 22:30 NO uncontrolled hemorrhage observed. A: The client is awake and alert. The airway is jb4 patent. Breathing/Chest: Spontaneous respiratory effort, equal unlabored respirations, breath sounds clear bilaterally, regular pattern, symmetrical chest rise and fall. Circulation: No external hemorrhage present. Regular and strong central pulse, skin warm/dry/normal color. Disability Client is alert. Exposure/Environment: All clothing and personal items were removed. Forensic evidence collection is not deemed to be indicated at this time. Items placed in patient belonging bag. 23:05 Reassessment Alertness and Airway: Awake and alert. The airway is patent. Breathing: jb4 Spontaneous respiratory effort, equal unlabored respirations, breath sounds clear bilaterally, regular pattern with symmetrical chest rise and fall. Circulation: No external hemorrhage noted. Regular and strong central pulse, skin warm/dry/normal color. Disability: Alert. Assessment: 22:30 General: Appears in no apparent distress. comfortable, Behavior is calm, cooperative, jb4 appropriate for age. Pain: Complains of pain in scalp Pain does not radiate. Pain currently is 4 out of 10 on a pain scale. Neuro: Level of Consciousness is awake, alert, obeys commands, Oriented to person, place, time, situation. Cardiovascular: Patient's skin is warm and dry. Respiratory: Airway is patent Respiratory effort is even, unlabored, Respiratory pattern is regular, symmetrical. GI: No signs and/or symptoms were reported involving the gastrointestinal system. : No signs and/or symptoms were reported regarding the genitourinary system. EENT: No signs and/or symptoms were reported regarding the EENT system. Derm: Skin is pink, warm \T\ dry. Wound noted scalp. Musculoskeletal: Circulation, motion, and sensation intact. Range of motion: intact in all extremities. Injury Description: Laceration sustained to scalp. 23:53 Reassessment: Patient appears in no apparent distress at this time. Patient and/or jb4 family updated on plan of care and expected duration. Pain level reassessed. Patient is alert, oriented x 3, equal unlabored respirations, skin warm/dry/pink. Vital Signs: 23:00 BP 133 / 62; Pulse 58; Resp 16; Temp 98.8(TE); Pulse Ox 98% on R/A; Pain 4/10; jb4 23:53 BP 105 / 5; Pulse 54; Resp 18; Pulse Ox 99% on R/A; jb4 Pearl Coma Score: 22:30 Eye Response: spontaneous(4). Verbal Response: oriented(5). Motor Response: obeys jb4 commands(6). Total: 15. 23:30 Eye Response: spontaneous(4). Verbal Response: oriented(5). Motor Response: obeys jb4 commands(6). Total: 15. Trauma Score (Adult): 22:30 Eye Response: spontaneous(1); Verbal Response: oriented(1); Motor Response: obeys jb4 commands(2); Systolic BP: > 89 mm Hg(4); Respiratory Rate: 10 to 29 per min(4); Pearl Score: 15; Trauma Score: 12 23:30 Eye Response: spontaneous(1); Verbal Response: oriented(1); Motor Response: obeys jb4 commands(2); Systolic BP: > 89 mm Hg(4); Respiratory Rate: 10 to 29 per min(4); Pearl Score: 15; Trauma Score: 12 ED Course: 21:07 Patient arrived in ED. bp1 21:36 Viral Loera DO is Attending Physician. ms3 21:44 Carson Mcfarland, RN is Primary Nurse. jb4 22:30 Patient has correct armband on for positive identification. Placed in gown. Bed in low jb4 position. Call light in reach. Side rails up X 1. 22:30 Patient maintains SpO2 saturation greater than 95% on room air. Thermoregulation: warm jb4 blanket given to patient. 22:32 Triage completed. jb4 22:53 CT Head C Spine In Process Unspecified. EDMS 23:54 No provider procedures requiring assistance completed. Patient did not have IV access jb4 during this emergency room visit. Administered Medications: 22:32 Drug: Tetanus Toxoid,Adsorbed 0.5 ml {[employer]: [employer] Exp: 01/10/2024. Lot jb4 #: [id number]. } Route: IM; Site: left deltoid; 23:19 Follow up: Response: No adverse reaction jb4 Output: 22:30 Urine: 1ml (Voided); Total: 1ml. jb4 Outcome: 23:23 Discharge ordered by . ms3 23:54 Discharged to home via wheelchair. jb4 23:54 Condition: stable 23:54 Discharge instructions given to patient, Instructed on discharge instructions, follow up and referral plans. Demonstrated understanding of instructions, follow-up care. 23:56 Patient left the ED. jb4 Signatures: Dispatcher [employer] EDMS [place], Carson, RN RN jb4 Viral Loera DO DO ms3 Jennifer Jamison bp1 Corrections: (The following items were deleted from the chart) : 22:30 Pain: Denies pain. jb4 jb4
[2022-03-15 00:38] VITALS: TEMP 98.8
[2022-03-15 00:43] VITALS: BP 105/5; O2SAT 99
== END 2022-03-14 23:56 | disposition home or self-care (01) ==
LOC: ER 21:06
PROC: 0JQ00ZZ Repair Scalp Subcutaneous Tissue and Fascia, Open Approach (ICD-10-PCS; principal; 2022-03-14)
DX: S01.01XA Laceration without foreign body of scalp, initial encounter (principal); W18.30XA Fall on same level, unspecified, initial encounter; Z23 Encounter for immunization; I10 Essential (primary) hypertension; Z95.818 Presence of other cardiac implants and grafts; Z79.01 Long term (current) use of anticoagulants; Z88.0 Allergy status to penicillin; Z88.2 Allergy status to sulfonamides
CPT/HCPCS: 70450; 72125; 90471; 90714; 99284